=== PATIENT | female | born 1940 | race Caucasian/White ===

== ENCOUNTER 2017-08-31 15:11 | Inpatient (IN) | payer MEDICARE ==
[2017-08-31 15:43] VITALS: BMI 34.2
[2017-08-31 16:31] LABS: #Basophils 0.1 thou/uL (0.0-0.2); #Eosinphils 0.2 thou/uL (0.0-0.7); #Lymphocytes 2.2 thou/uL (1.20-3.40); #Neutrophils 7.2 thou/uL (1.40-6.50); %Basophils 0.6 % (0.0-1.0); %Eosinophils 1.6 % (0.0-10.0); %Monocytes 8.9 % (0.0-10.0); Hematocrit 44.6 % (36.0-47.0); Mean Platelet Volume 7.2 fL (7.4-10.4); Red Blood Cell (RBC) Count 5.12 mill/uL (4.20-5.40); White Blood Cell (WBC) Count 10.6 thou/uL (4.8-10.8)
[2017-08-31] MEDS ORDERED: Acetaminophen 325 MG TAB PO PRN (16:41)
[2017-08-31 16:53] LABS: ALT (SGPT) 24 U/L (8-55); AST (SGOT) 26 U/L (5-34); Alkaline Phosphatase 90 U/L (40-150); Anion Gap 14 mmol/L (10-20); BUN (Urea Nitrogen) 20 mg/dL (9.8-20.1); Bilirubin, Total 0.8 mg/dL (0.2-1.2); Calc. Creatinine Clearance 80 mL/min (70-130); Calcium 10.2 mg/dL (7.8-10.44); Carbon Dioxide 30 mmol/L (23-31); Chloride 100 mmol/L (98-107); Estimated GFR-MDRD 69; Globulin 3.3 g/dL (2.4-3.5); Protein, Total 7.3 g/dL (6.0-8.3)
[2017-08-31] MEDS: cefTRIAXone\\ROCEPHIN 1 GM in Sodium Chloride 0.9% 100 ML IVPB SCH (17:08)
[2017-08-31] MEDS: Azithromycin 500 MG in Sodium Chloride 0.9% 250 ML 250 ML IVPB SCH (17:47)
--- NOTE | 2017-08-31 17:49 | RAD ---
CHEST TWO VIEWS: 08/31/17 HISTORY: Pneumonia. COMPARISON: 11/05/08. FINDINGS: The cardiac silhouette and pulmonary vasculature are unremarkable. Mild bibasilar atelectasis is tariq arent with more focal infiltrate-like opacity at the left posterior lung base. Minimal bilateral ple ural fluid may be present. No lobar consolidation or pneumothorax are apparent. IMPRESSION: Subtle left basilar parenchymal opacity may present focal pneumonitis or chronic scarring. Clinical correlation regarding other signs and symptoms of left basilar pneumonitis is required. Please consi juliet continued radiographic followup to evaluate for clearing versus further progression. POS: [facility]
[2017-08-31] MEDS: Albuterol Sulfate 2.5 mg/3 ml Neb NEB SCH (19:08)
[2017-08-31 19:26] LABS: Bilirubin Negative (Negative); Blood, Urine Large (Negative); Glucose, Urine (Dipstick) Negative (Negative); Ketone, Urine Negative (Negative); Nitrite Negative (Negative); Protein, Urine (Dipstick) 30 mg/dL (Neg-Trace)
[2017-08-31 19:28] LABS: Bacteria/HPF None Seen HPF (None Seen); Hyaline Casts/LPF 0-3 HYALINE CAST LPF (0-3 Hyaline); Squamous Epithelial 0-3 HPF (0-3); WBC/HPF 0-3 HPF (0-3)
[2017-08-31] MEDS: Pravastatin Sodium 40 MG TAB PO SCH ×2 (20:14→21:18)
[2017-08-31] MEDS: Aspirin 325 MG TAB PO SCH ×3 (20:14→21:21)
[2017-08-31] MEDS ORDERED: Ondansetron HCl/PF 4 MG/2 ML Vial SLOW IVP PRN (20:40)
[2017-08-31] MEDS ORDERED: Mag-Al 1200 mg/1200 mg/30 ML UDCUP PO PRN (20:40)
[2017-08-31] MEDS: Pantoprazole 40 MG VIAL IVP SCH (21:07)
[2017-08-31] MEDS: Zolpidem Tartrate 5 MG TAB PO PRN (21:18)
--- NOTE | 2017-09-01 05:58 | HP-2 ---
DATE OF ADMISSION: 08/31/2017 ADMITTING PHYSICIAN: Bakari Alcaraz M.D. HISTORY OF PRESENT ILLNESS: The patient is a 76-year-old female. For 3 days, she has been having p roductive coughs, low-grade fever, some mild chest discomfort. She was seen and evaluated in off ice on Tuesday, was diagnosed as having mild pneumonia based on patchy infiltrates of her chest x-ray , both right and left lower lobe. She was placed on p.o. Levaquin as well as intramuscular Rocephin . She was seen today in followup. She states she was really not feeling much better. She is havin g some problems with vomiting. She feels somewhat more short of breath, even though her O2 sats wer e 93% on room air. She still noticed some productive coughing, but no bloody sputum is otherwise no jeff. She has now been admitted for further evaluation and treatment. As noted, she has been having symptoms now for approximately 3-5 days. This began after an episode of vomiting approximately 3-4 days ago. She did not note any choking or gagging associated with thi s. Otherwise, no other medical complaints. ALLERGIES: She has no known allergies. CURRENT MEDICATIONS: Metoprolol 25 mg daily, lisinopril 5 mg daily, pravastatin 40 mg daily, aspiri n 325 b.i.d. PAST MEDICAL HISTORY: Significant for history of atrial fibrillation, status post ablation. PAST SURGICAL HISTORY: Positive for bilateral knee replacement. SOCIAL AND PERSONAL HISTORY: She is . She does not smoke, drinks alcohol infrequently. FAMILY HISTORY: Otherwise, noncontributory. REVIEW OF SYSTEMS: Gastrointestinal: Negative. Genitourinary: Negative. Cardiovascular: Negati ve. Neurologic: Negative. Musculoskeletal: Otherwise, negative. PHYSICAL EXAMINATION: VITAL SIGNS: Temperature 98.3, pulse 60, respirations 18, O2 sats 93% on room air, BP 156/79. GENERAL: She is alert and active, in no acute distress. HEENT: Normocephalic, atraumatic. Extraocular muscles are intact. Sclerae and conjunctivae are cl ear. Throat clear. NECK: Supple, full range of motion, no masses. LUNGS: Reveal scattered rales, fairly mild to the right and left base without wheezes or rhonchi ap preciated. ABDOMEN: Soft, nontender. The bowel sounds are active. No hepatosplenomegaly is noted. EXTREMITIES: No clubbing, edema, or cyanosis. LABORATORY: Hemoglobin is 14.8, hematocrit 44.6. White blood count is 10.6, sodium 140, potassium 4.0, chloride 100, CO2 30, BUN 20, creatinine 0.81. IMPRESSION: This is a 76-year-old female who has a previous diagnosis of pneumonia, failing outpati ent therapy. PLAN: 1. She will be placed on IV Rocephin and Zithromax. 2. IV steroids will be given. 3. Albuterol nebulizations. 4. Further recommendations and treatment, we will see how she initially responds to therapy.
[2017-09-01] MEDS: Albuterol Sulfate 2.5 mg/3 ml Neb NEB SCH ×3 (06:14→18:32)
--- NOTE | 2017-09-01 08:09 | PRG ---
DATE OF SERVICE: 09/01/2017 Record is feeling better, less coughing, less shortness of breath, less stress discomfort. PHYSICAL EXAMINATION: VITAL SIGNS: Temperature 98.1, pulse 57, respirations 20, O2 sat 98%. LUNGS: With decreased rales at the left and right base. No wheezes are noted. HEART: Reveals no murmur. IMPRESSION: Left lower lobe and right lower lobe pneumonia, improving. PLAN: Continue current treatment.
[2017-09-01] MEDS: Aspirin 325 MG TAB PO SCH ×2 (08:34→20:47)
[2017-09-01] MEDS: Lisinopril 5 MG TAB PO SCH (08:37)
[2017-09-01] MEDS: cefTRIAXone\\ROCEPHIN 1 GM in Sodium Chloride 0.9% 100 ML IVPB SCH (16:04)
[2017-09-01] MEDS: Azithromycin 500 MG in Sodium Chloride 0.9% 250 ML 250 ML IVPB SCH (17:32)
[2017-09-01] MEDS: Pravastatin Sodium 40 MG TAB PO SCH (20:47)
[2017-09-01] MEDS: Pantoprazole 40 MG VIAL IVP SCH (20:47)
[2017-09-01] MEDS: Zolpidem Tartrate 5 MG TAB PO PRN (20:47)
[2017-09-02] MEDS: Albuterol Sulfate 2.5 mg/3 ml Neb NEB SCH (06:39)
[2017-09-02 07:59] VITALS: BP 146/80
[2017-09-02 08:04] VITALS: TEMP 98
[2017-09-02] MEDS: Lisinopril 5 MG TAB PO SCH (09:24)
[2017-09-02] MEDS: Aspirin 325 MG TAB PO SCH (09:25)
--- NOTE | 2017-09-03 08:26 | DIS ---
DATE OF ADMISSION: 08/31/2017 DATE OF DISCHARGE: 09/02/2017 ADMITTING DIAGNOSIS: Bibasilar lobar pneumonia. CHIEF COMPLAINT: Shortness of breath. HISTORY OF PRESENT ILLNESS: Patient had a low-grade fever on an outpatient basis, started on Levaquin and a shot of Rocephin in the clinic, did not improve , worsening sputum production, oxygen saturations dropped in the low 90%, was directly admitted for IV medications, continued on Rocephin and azithromycin. HOSPITAL COURSE: The patient did well with IV antibiotics, steroids, and breathing treatments. At the time of discharge, oxygen saturations were stable above 90s, still making productive sputum, especially after breathing treatments. Patient reported good social support structure everybody, and son in town. Lungs were clear at the time of discharge post-breathing treatment. STUDIES: X-ray on 08/31/2017, left basal parenchymal opacity, additional signs suggestive of pneumonitis. DISCHARGE DIET: Regular. DISCHARGE ACTIVITY: As tolerated. FOLLOWUP: With Dr. Bakari Alcaraz in 3-5 days. DISCHARGE MEDICATIONS: Include Tylenol 650 mg p.r.n. pain, albuterol ProAir 2 puffs inhaled q. 4 hours p.r.n. wheeze and cough, Augmentin 875 mg/125 mg 1 tab p.o. b.i.d. x7 days, aspirin 325 mg 1 tab p.o. b.i.d., azithromycin 250 mg 1 tab p.o. q. day x3 days, lisinopril 5 mg 1 tab p.o. q. day, metoprolol 25 mg 1 tab p.o. q. day extended release, Protonix 40 mg 1 tab p.o. q. day, pravastatin 40 mg 1 tab p.o. at bedtime, prednisone 20 mg 1 tab p.o. q.a.m. x5 days, Cheratussin AC 15 mL p.o. q. 6 hours p.r.n. cough. DISCHARGE DIAGNOSES: Hypertension, basilar pneumonia, possible aspiration pneumonitis, improved; history of atrial fibrillation, continuing on twice daily aspirin therapy, status post ablation, continuing metoprolol. MTDD
== END 2017-09-02 10:29 | disposition home or self-care (01) | DRG 179 ==
LOC: T4-B 15:11
PROVIDERS: ADMIT Family Medicine; ATTEND Family Medicine
DX: J69.0 Pneumonitis due to inhalation of food and vomit (principal); I48.91 Unspecified atrial fibrillation; R11.10 Vomiting, unspecified; I10 Essential (primary) hypertension; Z79.82 Long term (current) use of aspirin
CPT/HCPCS: 36415; 71020; 80053; 81003; 81015; 85025; 94640; A4216; C9113; J0456; J0696; J2405; J2920; J7050; J7611

== ENCOUNTER 2017-11-14 14:30 | Emergency (ER) | payer MEDICARE ==
--- NOTE | 2017-11-14 15:50 | RAD ---
CHEST TWO VIEWS HISTORY: Cough. COMPARISON: 08/31/2017 FINDINGS: Cardiac silhouette and pulmonary vasculature are unremarkable. Lungs remain hyperinflated. Linear s carring at the left lung base is stable. There is no lobar consolidation, pneumothorax, or pleural f luid evident. IMPRESSION: Chronic-type findings are stable. No active cardiopulmonary abnormalities are demonstrated. POS: [facility]
[2017-11-14] MEDS ORDERED: predniSONE 20 MG TAB ONE (19:19)
== END 2017-11-14 19:15 | disposition home or self-care (01) ==
LOC: ERS 14:30
DX: J20.9 Acute bronchitis, unspecified (principal); I25.10 Atherosclerotic heart disease of native coronary artery without angina pectoris; I48.91 Unspecified atrial fibrillation; E78.5 Hyperlipidemia, unspecified; I10 Essential (primary) hypertension
CPT/HCPCS: 71020; 94640; J7506; J7620

== ENCOUNTER → 2019-09-16 | Emergency (ER) | payer MEDICARE ==
[~2019-09-16] MED LIST: Acetaminophen 500 MG TAB ONE; Ondansetron PF 4 MG/2 ML Vial ONE; cefTRIAXone\\ROCEPHIN 1 GM VIAL ONE
--- NOTE | 2019-09-16 17:50 | RAD ---
EXAM: Single view of the chest HISTORY: Cough COMPARISON: 11/05/2008 FINDINGS: Single view of the chest shows a normal sized cardiomediastinal silhouette. There is no jacqueline dence of consolidation, mass, or pleural effusion. The bones are unremarkable. IMPRESSION: No evidence of acute cardiopulmonary disease
[2019-09-16 18:10] LABS: #Eosinphils 0.1 thou/uL (0.0-0.7); #Lymphocytes 1.8 thou/uL (1.20-3.40); #Monocytes 0.9 thou/uL (0.11-0.59); #Neutrophils 11.9 thou/uL (1.40-6.50); %Basophils 0.1 % (0.0-1.0); %Eosinophils 0.6 % (0.0-10.0); %Lymphocytes 11.9 % (21.0-51.0); %Neutrophils 81.5 % (42.0-75.0); Hemoglobin 15.7 g/dL (12.0-16.0); Mean Corpuscular HGB CONC 34.4 g/dL (32.0-36.0); Mean Corpuscular Volume 84.4 fL (78.0-98.0); Mean Platelet Volume 7.7 fL (7.4-10.4); Platelet Count 186 thou/uL (130-400); RBC Distribution Width 12.4 % (11.5-14.5); Red Blood Cell (RBC) Count 5.39 mill/uL (4.20-5.40); White Blood Cell (WBC) Count 14.6 thou/uL (4.8-10.8)
[2019-09-16 18:30] LABS: ALT (SGPT) 14 U/L (8-55); AST (SGOT) 15 U/L (5-34); Albumin 4.4 g/dL (3.4-4.8); Alkaline Phosphatase 98 U/L (40-110); Anion Gap 16 mmol/L (10-20); BUN (Urea Nitrogen) 13 mg/dL (9.8-20.1); Bilirubin, Total 1.4 mg/dL (0.2-1.2); Calc. Creatinine Clearance 0 mL/min (70-130); Calcium 10.1 mg/dL (7.8-10.44); Carbon Dioxide 25 mmol/L (23-31); Chloride 100 mmol/L (98-107); Estimated GFR-MDRD 60; Globulin 2.7 g/dL (2.4-3.5); Glucose 116 mg/dL (83-110); Potassium 3.8 mmol/L (3.5-5.1); Protein, Total 7.1 g/dL (6.0-8.3); Sodium 137 mmol/L (136-145)
[2019-09-16 20:57] LABS: Bilirubin Negative (Negative); Blood, Urine 2+ (Negative); Clarity Clear (Clear); Glucose, Urine (Dipstick) Normal (Negative); Leukocyte 250 Leu/uL (Negative); Mucous/LPF 1+ LPF (<2+); Nitrite Negative (Negative); Protein, Urine (Dipstick) 50 mg/dL (Neg-Trace); RBC/HPF 21-50 HPF (0-3); Urobilinogen Normal mg/dL (Less than 2); WBC/HPF 21-50 HPF (0-3)
[2019-09-16 20:59] LABS: Bacteria/HPF 1+ HPF (None Seen)
== END ==
LOC: ERS 17:06
DX: J18.9 Pneumonia, unspecified organism (principal); J44.9 Chronic obstructive pulmonary disease, unspecified; I25.10 Atherosclerotic heart disease of native coronary artery without angina pectoris; I49.9 Cardiac arrhythmia, unspecified; I48.91 Unspecified atrial fibrillation; E78.5 Hyperlipidemia, unspecified; I10 Essential (primary) hypertension; F32.9 Major depressive disorder, single episode, unspecified; Z79.82 Long term (current) use of aspirin; Z79.899 Other long term (current) drug therapy
CPT/HCPCS: 36415; 71045; 80053; 81003; 81015; 83605; 84484; 85025; 87040; 87804; 93005; 96361; 96365; 96375; J0696; J2405

== ENCOUNTER 2020-08-14 13:08 | Observation (INO) | payer MEDICARE, OTHER ==
[2020-08-14 14:04] LABS: #Eosinphils 0.3 thou/uL (0.0-0.7); #Lymphocytes 3.1 thou/uL (1.20-3.40); #Monocytes 0.8 thou/uL (0.11-0.59); #Neutrophils 6.7 thou/uL (1.40-6.50); %Basophils 0.4 % (0.0-1.0); %Eosinophils 2.8 % (0.0-10.0); %Lymphocytes 28.8 % (21.0-51.0); %Monocytes 6.9 % (0.0-10.0); %Neutrophils 61.2 % (42.0-75.0); Hemoglobin 15.9 g/dL (12.0-16.0); Mean Corpuscular Hemoglobin 28.6 pg (27.0-31.0); Mean Corpuscular Volume 86.6 fL (78.0-98.0); Mean Platelet Volume 8.1 fL (7.4-10.4); Platelet Count 220 thou/uL (130-400); RBC Distribution Width 12.6 % (11.5-14.5); Red Blood Cell (RBC) Count 5.57 mill/uL (4.20-5.40); White Blood Cell (WBC) Count 10.9 thou/uL (4.8-10.8)
[2020-08-14 14:25] LABS: ALT (SGPT) 20 U/L (8-55); AST (SGOT) 21 U/L (5-34); Albumin 4.5 g/dL (3.4-4.8); Alkaline Phosphatase 108 U/L (40-110); Anion Gap 14 mmol/L (10-20); BUN (Urea Nitrogen) 18 mg/dL (9.8-20.1); Bilirubin, Total 0.9 mg/dL (0.2-1.2); Calc. Creatinine Clearance 0 mL/min (70-130); Calcium 9.5 mg/dL (7.8-10.44); Carbon Dioxide 26 mmol/L (23-31); Chloride 105 mmol/L (98-107); Estimated GFR-MDRD 52; Globulin 2.9 g/dL (2.4-3.5); Glucose 119 mg/dL (83-110); Potassium 3.7 mmol/L (3.5-5.1); Protein, Total 7.4 g/dL (6.0-8.3); Sodium 141 mmol/L (136-145)
--- NOTE | 2020-08-14 16:35 | PDOC.HHP ---
Hospitalist HPI - History of Present Illness Heart Palpitations History of Present Illness: PCP: Dr. Bakari Alcaraz The patient is an 79-year-old female with a past medical history significant for atrial fibrillation ( ablation greater than 10 years ago), hypertension and hyperlipidemia that presents to the emergency department for the above complaint. The patient reports feeling heart palpitations for the past several weeks. She reports that they last seconds. She has associated feeling of anxiety. Today while eating lunch at home, she reports developing heart palpitations again. She reports this time it lasted a couple of hours. She denies any chest pain, lower extremity swelling, lightheadedness or shortness of breath. She had no other symptomatology. She came to the ER for further sania luation. 8 ED Course: VITAL SIGNS [facility] Aug 14, 2020 13:10 RICHARD Owens Lauren BP: 178/114, Pulse: 150, Resp: 18, Temp: 98.5 (Oral), Pain: 0, O2 sat: 93 on (Room Air), Time: 08/14/2020 13:10. VITAL SIGNS [facility] Aug 14, 2020 13:46 RICHARD Vines Laine BP: 125/100, Pulse: 107, Resp: 20, O2 sat: 94 on (Room Air), Time: 08/14/2020 13:46. VITAL SIGNS [facility] Aug 14, 2020 13:49 RICHARD Vines Laine BP: 125/100, Pulse: 96, Resp: 20, O2 sat: 94 on (2L Oxygen), Time: 08/14/2020 13:49. VITAL SIGNS [facility] Aug 14, 2020 14:00 RICHARD Vines Laine BP: 132/70, Pulse: 90, Resp: 20, O2 sat: 95 on (2L Oxygen), Time: 08/14/2020 14:00. VITAL SIGNS [facility] Aug 14, 2020 14:10 RICHARD Vines Laine BP: 127/70, Pulse: 91, Resp: 20, O2 sat: 95 on (2L Oxygen), Time: 08/14/2020 14:10. VITAL SIGNS [facility] Aug 14, 2020 14:23 RICHARD Vines Laine BP: 132/88, Pulse: 88, Resp: 20, O2 sat: 95 on (2L Oxygen), Time: 08/14/2020 14:23. VITAL SIGNS [facility] Aug 14, 2020 14:30 RICHARD Vines Laine BP: 126/71, Pulse: 84, Resp: 20, O2 sat: 95 on (2L Oxygen), Time: 08/14/2020 14:30. VITAL SIGNS [facility] Aug 14, 2020 14:40 RICHARD Vines Laine BP: 127/59, Pulse: 82, Resp: 20, O2 sat: 95 on (2L Oxygen), Time: 08/14/2020 14:40. VITAL SIGNS [facility] Aug 14, 2020 14:45 RICHARD Vines Laine BP: 136/65, Pulse: 76, Resp: 20, O2 sat: 95 on (2L Oxygen), Time: 08/14/2020 14:45. VITAL SIGNS [facility] Aug 14, 2020 15:48 RICHARD Vines Laine BP: 133/65, Pulse: 74, Resp: 22, O2 sat: 95 on (2L Oxygen), Time: 08/14/2020 15:48. Medication administration: dilTIAZem intravenous 5 mg/hr IV Piggy Back Given 13:48 08/14/2020 dilTIAZem intravenous 25 mg IV Push Given 13:45 08/14/2020 Hospitalist ROS - Review of Systems Constitutional: denies: fever, chills Respiratory: denies: cough, shortness of breath, wheezing Cardiovascular: reports: palpitations. denies: chest pain, edema, light headedness Gastrointestinal: denies: nausea, vomiting, abdominal pain, diarrhea Genitourinary: denies: dysuria, hematuria All other systems reviewed; all pertinent +/- noted in HPI/Subj - Medication Medications: metoprolol succinate [facility] Aug 14, 2020 14:30 RICHARD Vines Laine tablet extended release 24 hr : Strength - 25 mg : ORAL Patient Dose: 25 mg Oral once a day. lisinopril [facility] Aug 14, 2020 14:31 RICHARD Vines Laine tablet : Strength - 5 mg : ORAL Patient Dose: 5 mg Oral once a day. atorvastatin [facility] Aug 14, 2020 14:31 RICHARD Vines Laine tablet : Strength - 10 mg : ORAL Patient Dose: 10 mg Oral. Allergies: NKDA Hospitalist History - Past Medical History Source: patient, RN notes reviewed Cardiac: reports: AFIB, CAD, HTN, Hyperlipidemia Psych: reports: Depression Other Medical History: MEDICAL HISTORY Past medical history includes cardiac history, coronary artery disease, arrhythmia, atrial fibrillation, Past medical history includes history of hyperlipidemia, Past medical history includes history of hypertension, which has been treated. VERIFIED 08/14/2020. FEMALE SURGICAL HISTORY CARDIAC ABLATION, Surgical history of appendectomy, Surgical history of orthopedic surgery, BILAT KNEE. VERIFIED 08/14/2020. PSYCHIATRIC HISTORY Psychiatric history includes, depression. VERIFIED 08/14/2020. SOCIAL HISTORY Patient drinks socially, rarely, Patient denies drug use, Patient has no smoking history. FAMILY HISTORY - Past Surgical History Past Surgical History: reports: Appendectomy, Other (cardiac ablation, B knee sx) - Social History Smoking Status: Former smoker (Quit greater than 20 years ago) Alcohol: reports: Rare Drugs: reports: none Living Situation: With Family Occupation: Retired. Activity level: independent ambulation - Exam General Appearance: NAD, awake alert Eye: anicteric sclera ENT: normocephalic atraumatic Neck: supple, symmetric, no JVD Heart: RRR, no murmur, no gallops, no rubs, normal peripheral pulses Respiratory: CTAB, no wheezes, no rales, no ronchi, normal chest expansion, no tachypnea Gastrointestinal: soft, non-tender, normal bowel sounds, no bruit, no guarding, no rigidity Extremities: no cyanosis, no edema Skin: no rashes Neurological: normal sensation to touch, no weakness, no focal deficits Musculoskeletal: normal tone, normal strength Psychiatric: normal affect, A&O x 3 Hospitalist Results - Labs Result Diagrams: 08/14/20 13:43 08/14/20 13:43 Lab results: WBC 10.9 thou/uL (4.8-10.8) H 08/14/20 13:43 Hgb 15.9 g/dL (12.0-16.0) 08/14/20 13:43 Hct 48.2 % (36.0-47.0) H 08/14/20 13:43 MCV 86.6 fL (78.0-98.0) 08/14/20 13:43 Plt Count 220 thou/uL (130-400) 08/14/20 13:43 Neutrophils % 61.2 % (42.0-75.0) 08/14/20 13:43 Sodium 141 mmol/L (136-145) 08/14/20 13:43 Potassium 3.7 mmol/L (3.5-5.1) 08/14/20 13:43 Chloride 105 mmol/L (98-107) 08/14/20 13:43 Carbon Dioxide 26 mmol/L (23-31) 08/14/20 13:43 BUN 18 mg/dL (9.8-20.1) 08/14/20 13:43 Creatinine 1.03 mg/dL (0.6-1.1) 08/14/20 13:43 Glucose 119 mg/dL (83-110) H 08/14/20 13:43 Calcium 9.5 mg/dL (7.8-10.44) 08/14/20 13:43 Total Bilirubin 0.9 mg/dL (0.2-1.2) 08/14/20 13:43 AST 21 U/L (5-34) 08/14/20 13:43 ALT 20 U/L (8-55) 08/14/20 13:43 Alkaline Phosphatase 108 U/L (40-110) 08/14/20 13:43 Troponin I 0.015 ng/mL (< 0.028) 08/14/20 13:43 B-Natriuretic Peptide 16.1 pg/mL (0-100) 08/14/20 13:43 Serum Total Protein 7.4 g/dL (6.0-8.3) 08/14/20 13:43 Albumin 4.5 g/dL (3.4-4.8) 08/14/20 13:43 - EKG Interpretation EK LEAD EKG INTERPRETATION [facility] Aug 14, 2020 14:04 MD Gutierrez Aaron 12 lead EKG interpreted by Emergency Department Physician at time of study, #1 Heart rate of 150 narrow complex with a QRS duration of 80 ms. No P waves visible supraventricular tachycardia. Nonspecific T wave changes in the lateral leads concerning for lateral ischemia. 12 LEAD EKG INTERPRETATION [facility] Aug 14, 2020 14:07 MD Gutierrez Aaron 12 lead EKG interpreted by Emergency Department Physician at time of study, Rate of 103. Sinus tachycardia. Normal axis normal intervals normal ST segments normal T waves. Impression sinus tachycardia. Hospitalist H&P A/P - Problem (1) SVT (supraventricular tachycardia) Code(s): I47.1 - SUPRAVENTRICULAR TACHYCARDIA Status: Acute (2) Heart palpitations Code(s): R00.2 - PALPITATIONS Status: Acute (3) History of atrial fibrillation Code(s): Z86.79 - PERSONAL HISTORY OF OTHER DISEASES OF THE CIRCULATORY SYSTEM Status: Chronic (4) Hypertension Code(s): I10 - ESSENTIAL (PRIMARY) HYPERTENSION Status: Chronic (5) Hyperlipidemia Code(s): E78.5 - HYPERLIPIDEMIA, UNSPECIFIED Status: Chronic - Plan Plan: 79/F with PMH atrial fibrillation (ablation> 10yrs), hypertension, hyperlipidemia presents for her palpitations. Admit to telemetry floor, observation status. Expected length of stay less than 2 midnights. #SVT Presented hypertensive, tachycardic, normal respirations, afebrile. Troponin 0.015, BNP 16.1 EKG narrow complex QRS, heart rate 150, no P waves. Given Cardizem 25 mg IVP with successful cardioversion. Started on Cardizem IVPB at 5 mg/hr. Consult cardiology. Order echocardiogram. Check TSH, mag level, UA. Give aspirin. #Heart palpitations Likely related to problem 1. #History of atrial fibrillation Reported ablation greater than 10 years ago. Not on any anticoagulation. #Hypertension Patient presented hypertensive. Restart home dose of metoprolol. Monitor blood pressure. #Hyperlipidemia Restart home dose of atorvastatin. SCDs for DVT prophylaxis. No GI prophylaxis. Full code. Medical decision maker is her spouse Ray at [phone]. Discussed case with Dr. Shore.
[2020-08-14] MEDS ORDERED: Ondansetron PF 4 MG/2 ML Vial IVP PRN (17:39)
[2020-08-14] MEDS ORDERED: Acetaminophen 325 MG TAB PO PRN (17:39)
[2020-08-14] MEDS ORDERED: Ondansetron ODT 4 MG TAB PO PRN (17:39)
[2020-08-14] MEDS ORDERED: Aspirin 325 mg Enteric Coated Tablet PO SCH (17:45)
[2020-08-14 18:12] VITALS: BMI 37.4
[2020-08-14] MEDS ORDERED: Diltiazem 125 MG in Sodium Chloride 0.9% 100 ML IVPB SCH (19:00)
[2020-08-14 19:43] LABS: Bilirubin Negative (Negative); Blood, Urine Trace (Negative); Clarity Clear (Clear); Glucose, Urine (Dipstick) Normal (Negative); Ketone, Urine Negative (Negative); Leukocyte 25 Leu/uL (Negative); Nitrite Negative (Negative); Protein, Urine (Dipstick) Negative (Neg-Trace); Specific Gravity, Urine 1.006 (1.002-1.036); Squamous Epithelial 0-3 HPF (0-3); Urobilinogen Normal mg/dL (Less than 2); pH, Urine 6.5 (5.0-9.0)
[2020-08-14 19:44] LABS: Bacteria/HPF 1+ HPF (None Seen)
[2020-08-14 20:46] LABS: Troponin I 0.024 ng/mL (< 0.028)
[2020-08-14 22:49] LABS: Troponin I 0.016 ng/mL (< 0.028)
[2020-08-14] MEDS ORDERED: diphenhydrAMINE 25 MG CAP PO SCH (23:30)
[2020-08-15 05:08] LABS: #Basophils 0.1 thou/uL (0.0-0.2); #Eosinphils 0.4 thou/uL (0.0-0.7); #Lymphocytes 2.8 thou/uL (1.20-3.40); #Monocytes 0.5 thou/uL (0.11-0.59); #Neutrophils 4.4 thou/uL (1.40-6.50); %Basophils 0.8 % (0.0-1.0); %Eosinophils 4.4 % (0.0-10.0); %Lymphocytes 34.7 % (21.0-51.0); %Monocytes 6.6 % (0.0-10.0); %Neutrophils 53.5 % (42.0-75.0); Hemoglobin 13.7 g/dL (12.0-16.0); Mean Corpuscular HGB CONC 32.7 g/dL (32.0-36.0); Mean Corpuscular Hemoglobin 28.3 pg (27.0-31.0); Mean Corpuscular Volume 86.8 fL (78.0-98.0); Mean Platelet Volume 7.8 fL (7.4-10.4); Platelet Count 182 thou/uL (130-400); RBC Distribution Width 12.5 % (11.5-14.5); Red Blood Cell (RBC) Count 4.84 mill/uL (4.20-5.40); White Blood Cell (WBC) Count 8.2 thou/uL (4.8-10.8)
[2020-08-15 05:52] LABS: Anion Gap 14 mmol/L (10-20); BUN (Urea Nitrogen) 20 mg/dL (9.8-20.1); Calc. Creatinine Clearance 81 mL/min (70-130); Calcium 8.8 mg/dL (7.8-10.44); Carbon Dioxide 26 mmol/L (23-31); Chloride 106 mmol/L (98-107); Estimated GFR-MDRD 63; Glucose 105 mg/dL (83-110); Potassium 3.7 mmol/L (3.5-5.1); Sodium 142 mmol/L (136-145)
[2020-08-15] MEDS ORDERED: Aspirin 81 mg Enteric Coated Tablet PO SCH (09:00)
[2020-08-15] MEDS ORDERED: Lisinopril 5 MG TAB PO SCH (09:00)
--- NOTE | 2020-08-15 10:51 | CON ---
DATE OF CONSULTATION: HISTORY OF PRESENT ILLNESS: Lindsay Pickering is an 79-year-old white female, who in June 2008, underwent right knee replacement. She had developed tachycardia which was labeled as sinus tachycardia and was placed on atenolol after surgery. She then stopped taking atenolol after that. In September 2008, she had sudden onset of palpitations. She came into the emergency room and was found to be in atrial flutter. She was started on intravenous Cardizem and converted to sinus rhythm. She then underwent radiofrequency ablation of her atrial flutter by Dr. Rojas in [place]. She has not had any further palpitations after that ablation until two weeks ago. She began to notice episodes of rapid heartbeat; however, this would only last for 1 or 2 seconds. Then yesterday, she had an episode that lasted for hours and came to the emergency room and was in supraventricular tachycardia. She was given intravenous Cardizem and has since converted to sinus rhythm. With her tachycardia, she only feels palpitations. She denied any chest discomfort or shortness of breath with that. PAST MEDICAL HISTORY: History of atrial flutter, hypercholesterolemia, and hypertension. PAST SURGICAL HISTORY: Appendectomy, right total knee replacement, left total knee replacement, radiofrequency ablation of atrial flutter. MEDICATIONS: Aspirin 325 daily, atorvastatin 10 mg daily, lisinopril 5 mg daily, metoprolol ER 25 mg daily. ALLERGIES: NONE. SOCIAL HISTORY: She occasionally drinks. She does not smoke. REVIEW OF SYSTEMS: A 10-point review of systems is otherwise unremarkable. PHYSICAL EXAMINATION: VITAL SIGNS: Blood pressure 140/62, pulse of 69. HEENT: PERRL. NECK: Supple. CHEST: Clear. CARDIAC: S1 and S2 normal without any S3, S4, or murmurs. Carotid upstrokes normal without bruits. ABDOMEN: Normal bowel sounds without tenderness or organomegaly. EXTREMITIES: Reveal no clubbing, cyanosis, or edema. NEUROLOGIC: Grossly intact. SKIN: Warm and dry. LABORATORY DATA: EKG on presentation revealed supraventricular tachycardia with rate of 149 per minute. No flutter waves are seen. After she converted, EKG revealed sinus tachycardia with rate of 103 per minute. CBC is unremarkable. Sodium 142, potassium 3.7, chloride 106, carbon dioxide 26, BUN 20, creatinine 0.87. Cardiac enzymes are unremarkable. TSH is normal. BNP 16.1. IMPRESSION: 1. 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 2. History of radiofrequency ablation for atrial flutter. 3. Hypertension. 4. Hypercholesterolemia. PLAN: Echocardiogram will be performed to reassess left ventricular function. Electrophysiology will be consulted for possible ablation of her supraventricular tachycardia. Job ID: [id number] MTDD
[2020-08-15 12:47] LABS: SARS-CoV-2 MS2 Positive; SARS-CoV-2 N Gene Negative; SARS-CoV-2 S Gene Negative; SARS-CoV-2 by NAA Not Detected (NotDetected); SARS-CoV-2 orf1ab Negative
--- NOTE | 2020-08-15 14:00 | PDOC.HOSPP ---
- Subjective Encounter Date: 08/15/20 Subjective: Feels completely normal. - Objective Vital Signs & Weight: Vital Signs (12 hours) Temp Pulse Resp BP BP Pulse Ox 08/15/20 12:00 97.6 F 62 16 176/74 H 94 L 08/15/20 07:41 98.3 F 69 16 140/62 94 L 08/15/20 04:45 63 18 130/58 L 63 L 08/15/20 03:35 98.4 F 68 18 139/68 96 Weight Weight 218 lb I&O: 08/14/20 08/15/20 08/16/20 06:59 06:59 06:59 Intake Total 567.9 Balance 567.9 Result Diagrams: 08/15/20 04:35 08/15/20 04:35 Hospitalist ROS - Medication Medications: Active Medications Generic Name Dose Route Start Last Admin Trade Name Freq PRN Reason Stop Dose Admin Aspirin 81 mg 08/15/20 09:00 08/15/20 09:12 Aspirin 81 Mg Enteric Coated Tablet PO 81 mg DAILY LEE Administration Lisinopril 5 mg 08/15/20 09:00 08/15/20 09:12 Lisinopril 5 Mg Tab PO 5 mg DAILY LEE Administration Metoprolol Succinate 25 mg 08/15/20 09:00 08/15/20 09:12 Metoprolol Succinate Xl 25 Mg Tab PO 25 mg DAILY LEE Administration - Exam General Appearance: NAD, awake alert General - other findings: Obese Heart: RRR, no murmur, no gallops, no rubs, normal peripheral pulses Respiratory: CTAB, no wheezes, no rales, no ronchi, normal chest expansion, no tachypnea, normal percussion Gastrointestinal: soft, non-tender, non-distended, normal bowel sounds, no palpable masses, no hepatomegaly, no splenomegaly, no bruit Extremities: no cyanosis, no clubbing, no edema Skin: normal turgor Musculoskeletal: normal tone, normal strength, no muscle wasting Psychiatric: normal affect, normal behavior, A&O x 3 Hosp A/P (1) SVT (supraventricular tachycardia) Code(s): I47.1 - SUPRAVENTRICULAR TACHYCARDIA Status: Acute (2) History of atrial fibrillation Code(s): Z86.79 - PERSONAL HISTORY OF OTHER DISEASES OF THE CIRCULATORY SYSTEM Status: Chronic (3) Hyperlipidemia Code(s): E78.5 - HYPERLIPIDEMIA, UNSPECIFIED Status: Chronic (4) Hypertension Code(s): I10 - ESSENTIAL (PRIMARY) HYPERTENSION Status: Chronic - Plan 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 Resolved presently. EP consult pending. Still on a diltiazem drip. On p.o. beta-aida. Hypertension: Continue with SRI inhibitor. Hyperlipidemia: Continue with statin.
[2020-08-15 14:58] VITALS: TEMP 97.6
[2020-08-15 16:11] VITALS: BP 131/61
--- NOTE | 2020-08-15 21:15 | CON ---
DATE OF CONSULTATION: 08/15/2020 Referring: Matt Ortiz MD HISTORY OF PRESENT ILLNESS: I am seeing Ms. 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 Her problems are: 1. Supraventricular tachycardia. a. Newly found narrow complex SVT at 149 beats per minute with difficult to visualize P-waves on presentation, did respond to the IV diltiazem. 2. Recurrent atrial arrhythmias. a. History of atrial flutter prompting radiofrequency ablation in [place] by Dr. Rojas. 3. History of hypertension. 4. Hypercholesteremia. ALLERGIES: NONE NOTED. MEDICATIONS: At home included 1. Aspirin. 2. Lisinopril. 3. Metoprolol succinate. 4. Lipitor. SUBJECTIVE: Ms. Pickering has been experiencing recurrent palpitations for last couple of weeks. The episodes though relatively short lasting and self terminating. This time though she developed a more lasting episode over 2 hours, which lasted until she came to the ER and was given a IV Cardizem bolus. Since then, she maintained sinus rhythm. Currently, she is asymptomatic. She had rapid palpitations, chest tightness sensation at the time of the tachycardia, now that has resolved. She denies PND or orthopnea. No fever, chills, cough. No stroke-like symptoms. No bleeding issues. No neurological deficits. REVIEW OF SYSTEMS: Rest of 12-point system otherwise unremarkable. PAST MEDICAL HISTORY: As above. She had history of appendectomy, right total knee replacement, left total knee replacement and radiofrequency ablation of atrial flutter in the past. SOCIAL HISTORY: She denies smoking or EtOH abuse. She does drink on occasion. Denies drug use. FAMILY HISTORY: Noncontributory. OBJECTIVE: VITAL SIGNS: Blood pressure 176/74, heart rate 62, respirations 16, and temperature 97.6 degrees Fahrenheit. GENERAL: Alert and oriented woman, in no apparent distress. NECK: Supple. Jugular veins not distended. CHEST: Coarse without crackles. HEART: Sounds are regular to rate and rhythm. No murmur or gallop. ABDOMEN: Benign. Bowel sounds positive. EXTREMITIES: Lower extremity without edema, clubbing, or cyanosis. Pulses are adequate. NEUROLOGIC: The patient is nonfocal. MUSCULOSKELETAL: Without joint swelling or deformity. SKIN: Without rash. DATABASE: EKG is reviewed. Initial EKG on 08/14/2020 reveals a narrow complex tachycardia with ventricular rate of 149 beats per minute. PVCs are not clearly visible. Subsequent EKG reveals sinus rhythm at 103 beats per minute. No significant ST-T changes. Telemetry strips continue to reveal normal rhythm. LABORATORY DATA: The white cell count 8.2, hemoglobin 13.7, platelet count is 182. Sodium 142, potassium 3.7, BUN is 20, creatinine is 0.87. The troponin I is 0.024 and 0.016 consecutively. The chest x-ray from September 16, 2019, shows no cardiopulmonary disease. ASSESSMENT AND PLAN: Ms. Pickering is a pleasant 79-year-old woman with a prior history of hypertension, also history of atrial flutter, which required radiofrequency ablation in [place] in 2006. Since then, she has done well up until 2 weeks ago when she started developing recurrent rapid palpitations. She had a nonterminating, more sustained episode prompting her current ER visit. Her EKG is documenting a narrow complex tachycardia at 149 beats per minute. P-waves are very difficult to visualize. No clear flutter waves are noted either. We discussed a differential diagnosis list which could include atypical atrial flutter versus AV fredi reentrant tachycardia or atrial tachycardia are all cannot be ruled out based on these. She has responded well to IV diltiazem, currently maintaining sinus rhythm on diltiazem drip. My plan would be at this point: 1. I would add p.o. diltiazem to her regimen. I have discussed the option of radiofrequency ablation. She is considering it. We will make arrangements as an outpatient to be revaluated and consider for this procedure. 2. Risks, benefits discussed. For now, I would continue aspirin only and will not place her on oral anticoagulant unless more sustained and more definite atrial flutter is seen. 3. Echocardiogram is being performed. We will obtain results and another followup will be arranged in next 2 to 4 weeks. Job ID: [id number] [facility]
--- NOTE | 2020-08-16 11:37 | EKG ---
Test Reason : Blood Pressure : / mmHG Vent. Rate : 149 BPM Atrial Rate : 079 BPM P-R Int : 000 ms QRS Dur : 080 ms QT Int : 300 ms P-R-T Axes : 000 020 011 degrees QTc Int : 472 ms Supraventricular tachycardia vs atrial flutter Nonspecific ST abnormality Abnormal ECG #1 Confirmed by LEXA NORTH, NORMA Hardwick ([id number]), image editor DAHIANA MONK ([id number]) on 08/16/2020 11:36:37 AM Referred By: Confirmed By:NORMA LINDQUIST MD
== END 2020-08-15 17:13 | disposition home or self-care (01) ==
LOC: ERS 13:08 → 2SW 15:51
PROVIDERS: ADMIT Internal Medicine; ATTEND Internal Medicine
DX: I47.1 Supraventricular tachycardia (principal); I10 Essential (primary) hypertension; E78.00 Pure hypercholesterolemia, unspecified; I25.10 Atherosclerotic heart disease of native coronary artery without angina pectoris; F32.9 Major depressive disorder, single episode, unspecified; I48.20 Chronic atrial fibrillation, unspecified; Z87.891 Personal history of nicotine dependence; Z79.82 Long term (current) use of aspirin; Z79.899 Other long term (current) drug therapy; Z20.828 Contact with and (suspected) exposure to other viral communicable diseases
CPT/HCPCS: 80048; 81001; 83735; 83880; 84484 ×2; 85025; 92960; 93005; 93306; 94760; 96374; 97139; 99291; U0003; 36415; 80053; 84443; 87635; 96376; G0378; Q0163

== ENCOUNTER 2021-04-13 10:30 | Observation (INO) | payer MEDICARE ==
[2021-04-13 10:52] LABS: #Basophils 0.1 thou/uL (0.0-0.2); #Eosinphils 0.2 thou/uL (0.0-0.7); #Lymphocytes 2.7 thou/uL (1.20-3.40); #Monocytes 0.5 thou/uL (0.11-0.59); #Neutrophils 4.9 thou/uL (1.40-6.50); %Basophils 0.7 % (0.0-1.0); %Eosinophils 2.5 % (0.0-10.0); %Lymphocytes 32.5 % (21.0-51.0); %Monocytes 6.4 % (0.0-10.0); %Neutrophils 57.9 % (42.0-75.0); Hemoglobin 15.4 g/dL (12.0-16.0); Mean Corpuscular HGB CONC 33.4 g/dL (32.0-36.0); Mean Corpuscular Hemoglobin 28.3 pg (27.0-31.0); Mean Corpuscular Volume 84.8 fL (78.0-98.0); Mean Platelet Volume 7.8 fL (7.4-10.4); Platelet Count 194 thou/uL (130-400); RBC Distribution Width 12.8 % (11.5-14.5); Red Blood Cell (RBC) Count 5.45 mill/uL (4.20-5.40); White Blood Cell (WBC) Count 8.4 thou/uL (4.8-10.8)
[2021-04-13 11:06] LABS: INR-International Normal Ratio 0.9; PTT 28.2 sec (22.9-36.1); Prothrombin Time 12.4 sec (12.0-14.7)
[2021-04-13 11:13] LABS: ALT (SGPT) 18 U/L (8-55); AST (SGOT) 19 U/L (5-34); Albumin 4.4 g/dL (3.4-4.8); Alkaline Phosphatase 118 U/L (40-110); Anion Gap 15 mmol/L (10-20); BUN (Urea Nitrogen) 22 mg/dL (9.8-20.1); Bilirubin, Total 0.9 mg/dL (0.2-1.2); Calc. Creatinine Clearance 0 mL/min (70-130); Calcium 9.5 mg/dL (7.8-10.44); Carbon Dioxide 24 mmol/L (23-31); Chloride 106 mmol/L (98-107); Globulin 2.9 g/dL (2.4-3.5); Glucose 105 mg/dL (83-110); Potassium 4.3 mmol/L (3.5-5.1); Protein, Total 7.3 g/dL (5.8-8.1); Sodium 141 mmol/L (136-145)
[2021-04-13] MEDS ORDERED: hydrALAZINE 20 MG/ML VIAL SLOW IVP PRN (14:28)
[2021-04-13] MEDS ORDERED: Labetalol HCl 100 MG/20 ML VIAL SLOW IVP PRN (14:28)
[2021-04-13] MEDS ORDERED: Acetaminophen 325 MG TAB PO PRN (14:28)
[2021-04-13] MEDS ORDERED: Melatonin 3 MG TAB PO PRN (14:28)
[2021-04-13 15:31] VITALS: BMI 35.6
[2021-04-13 21:48] LABS: SARS-CoV-2 PCR by NAA Not Detected (NotDetected)
[2021-04-14 06:00] LABS: #Eosinphils 0.3 thou/uL (0.0-0.7); #Lymphocytes 2.5 thou/uL (1.20-3.40); #Monocytes 0.6 thou/uL (0.11-0.59); #Neutrophils 3.8 thou/uL (1.40-6.50); %Basophils 0.7 % (0.0-1.0); %Eosinophils 3.5 % (0.0-10.0); %Monocytes 8.6 % (0.0-10.0); %Neutrophils 52.2 % (42.0-75.0); Hemoglobin 13.3 g/dL (12.0-16.0); Mean Corpuscular HGB CONC 33.3 g/dL (32.0-36.0); Mean Corpuscular Hemoglobin 28.3 pg (27.0-31.0); Mean Corpuscular Volume 85.2 fL (78.0-98.0); Mean Platelet Volume 7.8 fL (7.4-10.4); Platelet Count 158 thou/uL (130-400); RBC Distribution Width 12.6 % (11.5-14.5); Red Blood Cell (RBC) Count 4.68 mill/uL (4.20-5.40); White Blood Cell (WBC) Count 7.2 thou/uL (4.8-10.8)
[2021-04-14 06:03] LABS: Hemoglobin A1c 4.9 % (4.0-6.0)
[2021-04-14 06:16] LABS: Anion Gap 13 mmol/L (10-20); BUN (Urea Nitrogen) 21 mg/dL (9.8-20.1); Calc. Creatinine Clearance 76 mL/min (70-130); Calcium 8.9 mg/dL (7.8-10.44); Carbon Dioxide 25 mmol/L (23-31); Cardiac Risk 3.9 (Less than 4.5); Chloride 108 mmol/L (98-107); Cholesterol 133 mg/dl (< 200 Desired); Glucose 101 mg/dL (83-110); HDL Cholesterol 34 mg/dL (>60 Neg Risk); LDL Cholesterol, Calculated 75 mg/dL; Potassium 3.8 mmol/L (3.5-5.1); Sodium 142 mmol/L (136-145); Triglycerides 119 mg/dL (Less than 150)
[2021-04-14] MEDS ORDERED: Aspirin 325 MG TAB PO SCH (09:00)
[2021-04-14] MEDS ORDERED: Aspirin 325 mg Enteric Coated Tablet PO SCH (09:00)
[2021-04-14 15:40] VITALS: BP 145/64; TEMP 97.5
[2021-04-14] MEDS ORDERED: Atorvastatin Calcium 10 MG TAB PO SCH (21:00)
[2021-04-15] MEDS ORDERED: Lisinopril 5 MG TAB PO SCH (09:00)
== END 2021-04-14 18:15 | disposition home or self-care (01) ==
LOC: ERS 10:30 → SUATTDRO 10:30 → 2SE 12:12
PROVIDERS: ADMIT Internal Medicine; ATTEND Hospitalist
DX: I63.81 Other cerebral infarction due to occlusion or stenosis of small artery (principal); R29.810 Facial weakness; G81.91 Hemiplegia, unspecified affecting right dominant side; I25.10 Atherosclerotic heart disease of native coronary artery without angina pectoris; E78.5 Hyperlipidemia, unspecified; I48.91 Unspecified atrial fibrillation; I10 Essential (primary) hypertension; I65.23 Occlusion and stenosis of bilateral carotid arteries; I35.2 Nonrheumatic aortic (valve) stenosis with insufficiency; I44.0 Atrioventricular block, first degree; Z79.82 Long term (current) use of aspirin; Z79.899 Other long term (current) drug therapy; Z20.822 Contact with and (suspected) exposure to COVID-19
CPT/HCPCS: 70450; 70551; 71045; 80048; 80053; 80061; 82962; 83036; 84484; 85025 ×2; 85610; 85730; 93005; 93306; 93880; 97139; 99285; G0378 ×3; U0003; U0005; 36415; 36416; 87635

== ENCOUNTER 2022-01-13 08:58 | Outpatient (CLI) | payer MEDICARE | END 2022-01-13 08:59 | disposition home or self-care (01) | LOC: BICMAMMO 08:58 | PROVIDERS: ATTEND Family Medicine | DX: Z12.31 Encounter for screening mammogram for malignant neoplasm of breast (principal); Z98.82 Breast implant status | CPT/HCPCS: 77063; 77067 ==

== ENCOUNTER 2023-01-06 12:35 | Outpatient (CLI) | payer MEDICARE | END 2023-01-06 12:36 | disposition home or self-care (01) | LOC: ULT 12:35 | PROVIDERS: ATTEND Internal Medicine Cardiovascular Disease | DX: I48.0 Paroxysmal atrial fibrillation (principal); I08.3 Combined rheumatic disorders of mitral, aortic and tricuspid valves | CPT/HCPCS: 93306 ==

== ENCOUNTER 2023-02-23 11:24 | Outpatient (CLI) | payer MEDICARE ==
[2023-02-23 13:54] LABS: #Basophils 0.1 10x3/uL (0.0-0.2); #Eosinphils 0.1 10x3/uL (0.0-0.5); #Monocytes 0.8 10x3/uL (0.0-1.1); #Neutrophils 6.1 10x3/uL (1.5-8.4); %Basophils 0.5 % (0.0-2.0); %Eosinophils 1.1 % (0.0-6.0); %Monocytes 7.8 % (0.0-10.0); %Neutrophils 61.2 % (40.0-75.0); Hemoglobin 14.5 g/dL (12.0-15.5); Mean Corpuscular HGB CONC 31.7 g/dL (32.0-36.0); Mean Corpuscular Hemoglobin 26.9 pg (27.0-33.0); Mean Corpuscular Volume 84.8 fl (81.6-98.3); Mean Platelet Volume 11.1 fl (7.4-10.4); Platelet Count 214 10x3/uL (150-450); Red Blood Cell (RBC) Count 5.39 10x6/uL (3.90-5.03); White Blood Cell (WBC) Count 9.9 10x3/uL (3.5-10.5)
[2023-02-23 14:01] LABS: Anion Gap 17 mmol/L (10-20); BUN (Urea Nitrogen) 23 mg/dL (9.8-20.1); Calc. Creatinine Clearance 0 mL/min (70-130); Calcium 9.7 mg/dL (7.8-10.44); Carbon Dioxide 26 mmol/L (23-31); Chloride 105 mmol/L (98-107); Estimated GFR 57; Glucose 77 mg/dL (83-110); Potassium 4.9 mmol/L (3.5-5.1); Sodium 143 mmol/L (136-145)
== END 2023-02-23 11:25 | disposition home or self-care (01) ==
LOC: LABBT 11:24
PROVIDERS: ATTEND Internal Medicine Cardiovascular Disease
DX: Z01.812 Encounter for preprocedural laboratory examination (principal); M50.221 Other cervical disc displacement at C4-C5 level
CPT/HCPCS: 80048; 85025

== ENCOUNTER 2023-02-28 06:23 | Day surgery (SDC) | payer MEDICARE ==
[2023-02-25 11:26] VITALS: BMI 38.0
[2023-02-28] MEDS ORDERED: Lidocaine 1% PF 5 ML VIAL ONE (08:42)
[2023-02-28] MEDS ORDERED: PROPOFOL 200 MG/20 ML VIAL ONE (08:42)
== END 2023-02-28 10:41 | disposition home or self-care (01) ==
LOC: SDC 06:23
PROVIDERS: ATTEND Internal Medicine Cardiovascular Disease
PROC: 5A2204Z Restoration of Cardiac Rhythm, Single (ICD-10-PCS; principal; 2023-02-28)
PROC: B24BZZ4 Ultrasonography of Heart with Aorta, Transesophageal (ICD-10-PCS; 2023-02-28)
DX: I48.0 Paroxysmal atrial fibrillation (principal); I08.3 Combined rheumatic disorders of mitral, aortic and tricuspid valves; I70.0 Atherosclerosis of aorta; I44.0 Atrioventricular block, first degree; I48.92 Unspecified atrial flutter; I47.1 Supraventricular tachycardia; I11.9 Hypertensive heart disease without heart failure; E78.00 Pure hypercholesterolemia, unspecified; K21.9 Gastro-esophageal reflux disease without esophagitis; Z86.73 Personal history of transient ischemic attack (TIA), and cerebral infarction without residual deficits; Z79.01 Long term (current) use of anticoagulants; Z79.82 Long term (current) use of aspirin; Z79.899 Other long term (current) drug therapy; Z87.891 Personal history of nicotine dependence
CPT/HCPCS: 92960; 93005; 93010; 93312; J2704

== ENCOUNTER 2023-03-04 10:50 | Inpatient (IN) | payer MEDICARE ==
[2023-03-04 11:26] LABS: #Eosinphils 0.1 thou/uL (0.0-0.7); #Lymphocytes 2.2 thou/uL (1.20-3.40); #Monocytes 0.6 thou/uL (0.11-0.59); %Basophils 0.1 % (0.0-1.0); %Eosinophils 0.8 % (0.0-10.0); %Lymphocytes 22.2 % (21.0-51.0); %Monocytes 6.3 % (0.0-10.0); %Neutrophils 70.6 % (42.0-75.0); Mean Corpuscular HGB CONC 33.3 g/dL (32.0-36.0); Mean Corpuscular Hemoglobin 28.8 pg (27.0-31.0); Mean Corpuscular Volume 86.3 fl (78.0-98.0); Mean Platelet Volume 8.3 fL (7.4-10.4); Platelet Count 160 10x3/uL (130-400); RBC Distribution Width 13.5 % (11.5-14.5); White Blood Cell (WBC) Count 9.9 10x3/uL (4.8-10.8)
[2023-03-04 11:49] LABS: ALT (SGPT) 52 U/L (8-55); AST (SGOT) 24 U/L (5-34); Albumin 4.5 g/dL (3.4-4.8); Alkaline Phosphatase 125 U/L (40-110); Anion Gap 12 mmol/L (10-20); BUN (Urea Nitrogen) 17 mg/dL (9.8-20.1); Bilirubin, Total 1.7 mg/dL (0.2-1.2); Calc. Creatinine Clearance 0 mL/min (70-130); Carbon Dioxide 29 mmol/L (23-31); Chloride 104 mmol/L (98-107); Estimated GFR 63; Globulin 2.8 g/dL (2.4-3.5); Glucose 102 mg/dL (83-110); Potassium 4.2 mmol/L (3.5-5.1); Protein, Total 7.3 g/dL (5.8-8.1); Sodium 141 mmol/L (136-145)
[2023-03-04 12:02] LABS: Actual Bicarbonate (HCO3v) 25 mEq/L (22-28); Base Excess 1.9 mEq/L (-2.0 to +3.0); Calcium, Ionized (venous) 1.06 mmol/L (1.16-1.32); Chloride (VBG) 103 mmol/L (98-106); Hemoglobin (Hb) 14.5 g/dL (11.7-16.1); Potassium (VBG) 3.98 mmol/L (3.70-5.30); Sodium 140.6 mmol/L (133-146); pH (venous) 7.49 (7.32-7.43)
[2023-03-04 13:39] LABS: Bacteria/HPF None Seen HPF (None Seen); Bilirubin Negative (Negative); Blood, Urine 2+ (Negative); Clarity Clear (Clear); Glucose, Urine (Dipstick) Normal (Negative); Ketone, Urine Negative (Negative); Leukocyte Negative Leu/uL (Negative); Nitrite Negative (Negative); Protein, Urine (Dipstick) 10 mg/dL (Neg-Trace); Specific Gravity, Urine 1.008 (1.002-1.036); Squamous Epithelial 0-3 HPF (0-3); Urobilinogen Normal mg/dL (Less than 2); WBC/HPF 0-3 HPF (0-3)
[2023-03-04] MEDS ORDERED: Ondansetron PF 4 MG/2 ML Vial IVP PRN (13:44)
[2023-03-04] MEDS ORDERED: Calcium Carbonate 500 MG ChewTAB PO PRN (13:44)
[2023-03-04] MEDS ORDERED: Ondansetron ODT 4 MG TAB PO PRN (13:44)
[2023-03-04] MEDS ORDERED: Acetaminophen 325 MG TAB PO PRN (13:44)
[2023-03-04] MEDS ORDERED: Senokot S 8.6-50 MG TAB PO PRN (13:44)
[2023-03-04] MEDS ORDERED: Albuterol 2.5 MG/0.5 ML NEB ONE (13:59)
[2023-03-04] MEDS ORDERED: Furosemide 40 MG/4 ML VIAL SLOW IVP SCH (14:00)
[2023-03-04 16:59] VITALS: BMI 37.7
[2023-03-04 17:26] LABS: Troponin I Less than 0.010 ng/mL (< 0.028)
[2023-03-04 19:20] LABS: SARS-CoV-2 NAA Rapid Test Not Detected (NotDetected)
[2023-03-04] MEDS: Amiodarone 200 MG TAB PO SCH (20:03)
[2023-03-04] MEDS: Apixaban 5 MG TAB PO SCH (20:03)
[2023-03-04] MEDS ORDERED: Melatonin 3 MG TAB PO PRN (20:27)
[2023-03-04] MEDS ORDERED: Atorvastatin Calcium 40 MG TAB PO SCH (21:00)
[2023-03-04 21:47] LABS: Troponin I Less than 0.010 ng/mL (< 0.028)
[2023-03-05 05:22] LABS: #Eosinphils 0.2 thou/uL (0.0-0.7); #Lymphocytes 2.7 thou/uL (1.20-3.40); #Monocytes 0.9 thou/uL (0.11-0.59); %Eosinophils 1.7 % (0.0-10.0); %Lymphocytes 25.1 % (21.0-51.0); %Monocytes 8.1 % (0.0-10.0); %Neutrophils 65.1 % (42.0-75.0); Hemoglobin 14.7 g/dL (12.0-16.0); Mean Corpuscular HGB CONC 33.9 g/dL (32.0-36.0); Mean Corpuscular Volume 85.7 fl (78.0-98.0); Mean Platelet Volume 8.2 fL (7.4-10.4); Platelet Count 163 10x3/uL (130-400); RBC Distribution Width 13.6 % (11.5-14.5); Red Blood Cell (RBC) Count 5.05 mill/uL (4.20-5.40); White Blood Cell (WBC) Count 10.7 10x3/uL (4.8-10.8)
[2023-03-05] MEDS: Furosemide 20 MG/2 ML VIAL SLOW IVP SCH ×2 (05:47→14:42)
[2023-03-05 05:52] LABS: ALT (SGPT) 39 U/L (8-55); AST (SGOT) 20 U/L (5-34); Alkaline Phosphatase 118 U/L (40-110); Anion Gap 15 mmol/L (10-20); BUN (Urea Nitrogen) 17 mg/dL (9.8-20.1); Bilirubin, Total 1.5 mg/dL (0.2-1.2); Calc. Creatinine Clearance 70 mL/min (70-130); Calcium 9.7 mg/dL (7.8-10.44); Carbon Dioxide 26 mmol/L (23-31); Chloride 105 mmol/L (98-107); Estimated GFR 63; Globulin 2.5 g/dL (2.4-3.5); Glucose 104 mg/dL (83-110); Magnesium 2.1 mg/dL (1.6-2.6); Potassium 3.8 mmol/L (3.5-5.1); Protein, Total 6.5 g/dL (5.8-8.1); Sodium 142 mmol/L (136-145)
[2023-03-05] MEDS: Apixaban 5 MG TAB PO SCH ×2 (09:14→20:02)
[2023-03-05] MEDS: Atorvastatin Calcium 40 MG TAB PO SCH (09:14)
[2023-03-05] MEDS: Aspirin 81 mg Enteric Coated Tablet PO SCH (09:14)
[2023-03-05] MEDS: Amiodarone 200 MG TAB PO SCH ×2 (09:42→20:02)
[2023-03-06 05:37] LABS: #Eosinphils 0.1 thou/uL (0.0-0.7); #Lymphocytes 2.2 thou/uL (1.20-3.40); #Monocytes 0.7 thou/uL (0.11-0.59); #Neutrophils 4.9 thou/uL (1.40-6.50); %Basophils 0.5 % (0.0-1.0); %Eosinophils 1.7 % (0.0-10.0); %Lymphocytes 27.7 % (21.0-51.0); %Monocytes 8.4 % (0.0-10.0); %Neutrophils 61.7 % (42.0-75.0); Hemoglobin 13.5 g/dL (12.0-16.0); Mean Corpuscular HGB CONC 31.3 g/dL (32.0-36.0); Mean Corpuscular Hemoglobin 27.1 pg (27.0-31.0); Mean Corpuscular Volume 86.8 fl (78.0-98.0); Platelet Count 169 10x3/uL (130-400); RBC Distribution Width 13.3 % (11.5-14.5); Red Blood Cell (RBC) Count 4.97 mill/uL (4.20-5.40); White Blood Cell (WBC) Count 7.9 10x3/uL (4.8-10.8)
[2023-03-06 06:05] LABS: Anion Gap 12 mmol/L (10-20); BUN (Urea Nitrogen) 25 mg/dL (9.8-20.1); Calc. Creatinine Clearance 64 mL/min (70-130); Carbon Dioxide 27 mmol/L (23-31); Chloride 102 mmol/L (98-107); Estimated GFR 56; Glucose 97 mg/dL (83-110); Potassium 3.5 mmol/L (3.5-5.1); Sodium 137 mmol/L (136-145)
[2023-03-06] MEDS ORDERED: Furosemide 40 MG TAB PO SCH (07:30)
[2023-03-06] MEDS: Amiodarone 200 MG TAB PO SCH ×2 (08:11→20:07)
[2023-03-06] MEDS: Aspirin 81 mg Enteric Coated Tablet PO SCH (08:11)
[2023-03-06] MEDS: Atorvastatin Calcium 40 MG TAB PO SCH (08:11)
[2023-03-06] MEDS: Apixaban 5 MG TAB PO SCH ×2 (08:11→20:07)
[2023-03-06] MEDS ORDERED: Furosemide 40 MG/4 ML VIAL SLOW IVP SCH (09:00)
[2023-03-06] MEDS: Losartan 25 MG TAB PO SCH (09:45)
[2023-03-07] MEDS: Amiodarone 200 MG TAB PO SCH ×2 (03:52→20:58)
[2023-03-07 05:37] LABS: #Basophils 0.1 thou/uL (0.0-0.2); #Eosinphils 0.2 thou/uL (0.0-0.7); #Lymphocytes 2.4 thou/uL (1.20-3.40); #Monocytes 0.8 thou/uL (0.11-0.59); #Neutrophils 6.2 thou/uL (1.40-6.50); %Basophils 1.2 % (0.0-1.0); %Eosinophils 1.7 % (0.0-10.0); %Neutrophils 64.1 % (42.0-75.0); Hemoglobin 15.3 g/dL (12.0-16.0); Mean Corpuscular HGB CONC 33.4 g/dL (32.0-36.0); Mean Corpuscular Hemoglobin 28.6 pg (27.0-31.0); Mean Corpuscular Volume 85.7 fl (78.0-98.0); Mean Platelet Volume 8.3 fL (7.4-10.4); Platelet Count 181 10x3/uL (130-400); RBC Distribution Width 13.5 % (11.5-14.5); Red Blood Cell (RBC) Count 5.34 mill/uL (4.20-5.40); White Blood Cell (WBC) Count 9.7 10x3/uL (4.8-10.8)
[2023-03-07 05:58] LABS: Anion Gap 14 mmol/L (10-20); BUN (Urea Nitrogen) 28 mg/dL (9.8-20.1); Calc. Creatinine Clearance 64 mL/min (70-130); Calcium 9.4 mg/dL (7.8-10.44); Carbon Dioxide 26 mmol/L (23-31); Chloride 104 mmol/L (98-107); Estimated GFR 57; Glucose 113 mg/dL (83-110); Magnesium 2.2 mg/dL (1.6-2.6); Potassium 3.5 mmol/L (3.5-5.1); Sodium 140 mmol/L (136-145)
[2023-03-07] MEDS: Apixaban 5 MG TAB PO SCH ×2 (09:59→20:58)
[2023-03-07] MEDS: Furosemide 40 MG/4 ML VIAL SLOW IVP SCH (09:59)
[2023-03-07] MEDS: Atorvastatin Calcium 40 MG TAB PO SCH (09:59)
[2023-03-07] MEDS: Aspirin 81 mg Enteric Coated Tablet PO SCH (09:59)
[2023-03-07] MEDS: Losartan 25 MG TAB PO SCH (09:59)
[2023-03-08 05:05] LABS: #Eosinphils 0.2 thou/uL (0.0-0.7); #Lymphocytes 2.6 thou/uL (1.20-3.40); #Monocytes 0.8 thou/uL (0.11-0.59); #Neutrophils 6.2 thou/uL (1.40-6.50); %Basophils 0.4 % (0.0-1.0); %Eosinophils 2.2 % (0.0-10.0); %Lymphocytes 26.1 % (21.0-51.0); %Neutrophils 63.2 % (42.0-75.0); Hemoglobin 13.9 g/dL (12.0-16.0); Mean Corpuscular Hemoglobin 27.6 pg (27.0-31.0); Mean Corpuscular Volume 86.3 fl (78.0-98.0); Mean Platelet Volume 8.2 fL (7.4-10.4); Platelet Count 182 10x3/uL (130-400); RBC Distribution Width 13.3 % (11.5-14.5); Red Blood Cell (RBC) Count 5.05 mill/uL (4.20-5.40); White Blood Cell (WBC) Count 9.9 10x3/uL (4.8-10.8)
[2023-03-08 05:27] LABS: Anion Gap 16 mmol/L (10-20); BUN (Urea Nitrogen) 33 mg/dL (9.8-20.1); Calc. Creatinine Clearance 60 mL/min (70-130); Calcium 9.3 mg/dL (7.8-10.44); Carbon Dioxide 24 mmol/L (23-31); Chloride 102 mmol/L (98-107); Estimated GFR 53; Glucose 99 mg/dL (83-110); Potassium 3.6 mmol/L (3.5-5.1); Sodium 138 mmol/L (136-145)
[2023-03-08] MEDS: Amiodarone 200 MG TAB PO SCH (08:23)
[2023-03-08] MEDS: Aspirin 81 mg Enteric Coated Tablet PO SCH (08:23)
[2023-03-08] MEDS: Atorvastatin Calcium 40 MG TAB PO SCH (08:23)
[2023-03-08] MEDS: Losartan 25 MG TAB PO SCH (08:23)
[2023-03-08] MEDS: Apixaban 5 MG TAB PO SCH (08:23)
[2023-03-08] MEDS ORDERED: Regadenoson 0.4 MG/5 ML SYRINGE ONE (09:18)
[2023-03-08] MEDS: Furosemide 40 MG/4 ML VIAL SLOW IVP SCH (12:27)
[2023-03-08 17:21] VITALS: BP 119/49; TEMP 98.8
== END 2023-03-08 17:10 | disposition home or self-care (01) | DRG 291 ==
LOC: SUATTDRO 10:50 → ERS 10:50 → 2SW 13:40 → OBSVTOIN 03-06 11:08
PROVIDERS: ADMIT Internal Medicine; ATTEND Internal Medicine
DX: I11.0 Hypertensive heart disease with heart failure (principal); I50.33 Acute on chronic diastolic (congestive) heart failure; J96.01 Acute respiratory failure with hypoxia; E78.5 Hyperlipidemia, unspecified; I48.0 Paroxysmal atrial fibrillation; R00.1 Bradycardia, unspecified; Z79.82 Long term (current) use of aspirin; Z79.01 Long term (current) use of anticoagulants; Z79.899 Other long term (current) drug therapy
CPT/HCPCS: 36415; 71045; 78452; 80048; 80053; 81003; 81015; 82805; 83735; 83880; 84484; 85025; 93005; 93010; 93017; 93306; 94760; 96374; 96376; A9500; G0378; J1940; J2785; J7611; U0002

== ENCOUNTER 2023-08-30 12:15 | Emergency (ER) | payer MEDICARE ==
[2023-08-30 13:11] LABS: #Eosinphils 0.2 thou/uL (0.0-0.7); #Monocytes 0.5 thou/uL (0.11-0.59); #Neutrophils 4.9 thou/uL (1.40-6.50); %Basophils 0.4 % (0.0-1.0); %Lymphocytes 26.7 % (21.0-51.0); %Monocytes 6.9 % (0.0-10.0); %Neutrophils 63.6 % (42.0-75.0); Hematocrit 39.6 % (36.0-47.0); Hemoglobin 13.1 g/dL (12.0-16.0); Mean Corpuscular HGB CONC 33.1 g/dL (32.0-36.0); Mean Corpuscular Hemoglobin 28.4 pg (27.0-31.0); Mean Corpuscular Volume 85.9 fl (78.0-98.0); Mean Platelet Volume 9.8 fL (7.4-10.4); Platelet Count 179 10x3/uL (130-400); Red Blood Cell (RBC) Count 4.61 mill/uL (4.20-5.40); White Blood Cell (WBC) Count 7.7 10x3/uL (4.8-10.8)
[2023-08-30 13:36] LABS: ALT (SGPT) 21 U/L (8-55); AST (SGOT) 20 U/L (5-34); Alkaline Phosphatase 103 U/L (40-110); Anion Gap 13 mmol/L (10-20); BUN (Urea Nitrogen) 20 mg/dL (9.8-20.1); Bilirubin, Total 0.9 mg/dL (0.2-1.2); Calc. Creatinine Clearance 0 mL/min (70-130); Calcium 9.3 mg/dL (7.8-10.44); Carbon Dioxide 26 mmol/L (23-31); Chloride 105 mmol/L (98-107); Estimated GFR 54; Globulin 2.6 g/dL (2.4-3.5); Glucose 96 mg/dL (83-110); Magnesium 1.9 mg/dL (1.6-2.6); Potassium 3.8 mmol/L (3.5-5.1); Protein, Total 6.6 g/dL (5.8-8.1); Sodium 140 mmol/L (136-145)
== END 2023-08-30 14:05 | disposition home or self-care (01) ==
LOC: ERS 12:15
DX: R55 Syncope and collapse (principal); I25.10 Atherosclerotic heart disease of native coronary artery without angina pectoris; I48.91 Unspecified atrial fibrillation; I10 Essential (primary) hypertension; Z87.891 Personal history of nicotine dependence; Z79.01 Long term (current) use of anticoagulants
CPT/HCPCS: 36415; 70450; 72125; 80053; 83735; 85025; 93005

== ENCOUNTER 2023-09-10 17:33 | Inpatient (IN) | payer MEDICARE ==
[~2023-09-10 17:33] MED LIST changes: -Acetaminophen 500 MG TAB ONE; +Iopamidol-370 76% 500 ML MDV (1 ML CHARGE) ONE; -Ondansetron PF 4 MG/2 ML Vial ONE; -cefTRIAXone\\ROCEPHIN 1 GM VIAL ONE
[2023-09-10] MEDS ORDERED: Aspirin Chewable 81 MG TAB ONE (17:59)
[2023-09-10] MEDS ORDERED: Morphine 4 MG/ML VIAL ONE (17:59)
[2023-09-10] MEDS ORDERED: hydrALAZINE 20 MG/ML VIAL ONE (18:00)
[2023-09-10] MEDS ORDERED: Ondansetron PF 4 MG/2 ML Vial ONE ×2 (18:05→19:09)
[2023-09-10 19:06] LABS: #Eosinphils 0.2 thou/uL (0.0-0.7); #Monocytes 0.6 thou/uL (0.11-0.59); #Neutrophils 6.6 thou/uL (1.40-6.50); %Basophils 0.3 % (0.0-1.0); %Eosinophils 2.1 % (0.0-10.0); %Lymphocytes 22.3 % (21.0-51.0); %Monocytes 6.4 % (0.0-10.0); %Neutrophils 68.5 % (42.0-75.0); Hematocrit 37.8 % (36.0-47.0); Hemoglobin 12.5 g/dL (12.0-16.0); Mean Corpuscular HGB CONC 33.1 g/dL (32.0-36.0); Mean Corpuscular Hemoglobin 28.6 pg (27.0-31.0); Mean Corpuscular Volume 86.5 fl (78.0-98.0); Mean Platelet Volume 10.4 fL (7.4-10.4); Platelet Count 188 10x3/uL (130-400); RBC Distribution Width 13.8 % (11.5-14.5); Red Blood Cell (RBC) Count 4.37 mill/uL (4.20-5.40); White Blood Cell (WBC) Count 9.7 10x3/uL (4.8-10.8)
[2023-09-10 19:30] LABS: ALT (SGPT) 52 U/L (8-55); AST (SGOT) 92 U/L (5-34); Albumin 4.1 g/dL (3.4-4.8); Alkaline Phosphatase 231 U/L (40-110); Anion Gap 12 mmol/L (10-20); BUN (Urea Nitrogen) 20 mg/dL (9.8-20.1); Bilirubin, Total 1.4 mg/dL (0.2-1.2); Calc. Creatinine Clearance 0 mL/min (70-130); Calcium 8.9 mg/dL (7.8-10.44); Carbon Dioxide 25 mmol/L (23-31); Chloride 108 mmol/L (98-107); Estimated GFR 71; Globulin 2.2 g/dL (2.4-3.5); Glucose 138 mg/dL (83-110); Lipase 32 U/L (8-78); Potassium 3.6 mmol/L (3.5-5.1); Protein, Total 6.3 g/dL (5.8-8.1); Sodium 141 mmol/L (136-145)
[2023-09-10 19:34] LABS: Troponin I Less than 0.010 ng/mL (< 0.028)
[2023-09-10] MEDS ORDERED: Acetaminophen 325 MG TAB PO PRN (20:18)
[2023-09-10] MEDS ORDERED: hydrALAZINE 20 MG/ML VIAL SLOW IVP PRN (20:27)
[2023-09-10] MEDS ORDERED: Apixaban 5 MG TAB PO SCH (21:00)
[2023-09-10 22:13] LABS: Troponin I Less than 0.010 ng/mL (< 0.028)
[2023-09-10 22:47] VITALS: BMI 38.0
[2023-09-11 01:53] LABS: Troponin I Less than 0.010 ng/mL (< 0.028)
[2023-09-11 05:21] LABS: #Neutrophils 12.4 thou/uL (1.40-6.50); %Basophils 0.1 % (0.0-1.0); %Lymphocytes 5.5 % (21.0-51.0); %Monocytes 7.2 % (0.0-10.0); %Neutrophils 86.7 % (42.0-75.0); Hematocrit 40.9 % (36.0-47.0); Hemoglobin 13.2 g/dL (12.0-16.0); Mean Corpuscular HGB CONC 32.3 g/dL (32.0-36.0); Mean Corpuscular Hemoglobin 28.1 pg (27.0-31.0); Mean Platelet Volume 10.8 fL (7.4-10.4); Platelet Count 184 10x3/uL (130-400); RBC Distribution Width 13.9 % (11.5-14.5); White Blood Cell (WBC) Count 14.3 10x3/uL (4.8-10.8)
[2023-09-11 05:32] LABS: Bacteria/HPF None Seen HPF (None Seen); Bilirubin Negative (Negative); Blood, Urine 2+ (Negative); Clarity Clear (Clear); Glucose, Urine (Dipstick) 30 mg/dL (Negative); Ketone, Urine Negative (Negative); Leukocyte Negative Leu/uL (Negative); Nitrite Negative (Negative); Protein, Urine (Dipstick) 30 mg/dL (Neg-Trace); RBC/HPF 21-50 HPF (0-3); Specific Gravity, Urine 1.033 (1.002-1.036); Squamous Epithelial 0-3 HPF (0-3); WBC/HPF 0-3 HPF (0-3)
[2023-09-11 05:51] LABS: Troponin I Less than 0.010 ng/mL (< 0.028)
[2023-09-11 06:03] LABS: ALT (SGPT) 262 U/L (8-55); AST (SGOT) 327 U/L (5-34); Albumin 4.2 g/dL (3.4-4.8); Alkaline Phosphatase 331 U/L (40-110); Anion Gap 16 mmol/L (10-20); BUN (Urea Nitrogen) 18 mg/dL (9.8-20.1); Bilirubin, Total 3.2 mg/dL (0.2-1.2); Calc. Creatinine Clearance 82 mL/min (70-130); Calcium 9.1 mg/dL (7.8-10.44); Carbon Dioxide 25 mmol/L (23-31); Chloride 105 mmol/L (98-107); Estimated GFR 73; Glucose 133 mg/dL (83-110); Potassium 4.1 mmol/L (3.5-5.1); Protein, Total 6.2 g/dL (5.8-8.1); Sodium 142 mmol/L (136-145)
[2023-09-11] MEDS ORDERED: Ampicillin/Sulbactam 3 GM in Sodium Chloride 0.9% 100 ML IVPB SCH (08:30)
[2023-09-11] MEDS ORDERED: Atorvastatin Calcium 40 MG TAB PO SCH (09:00)
[2023-09-11 09:06] LABS: INR-International Normal Ratio 1.2; Prothrombin Time 15.7 sec (12.0-14.7)
[2023-09-11] MEDS: Metoprolol Tartrate 25 MG TAB PO SCH (09:54)
[2023-09-11] MEDS: Doxycycline 100 MG in Sodium Chloride 0.9% 100 ML IVPB SCH ×2 (09:54→21:54)
[2023-09-11] MEDS: Amiodarone 200 MG TAB PO SCH ×2 (09:54→20:59)
[2023-09-11] MEDS: Losartan 25 MG TAB PO SCH (09:54)
[2023-09-11 11:37] LABS: SARS-CoV-2 NAA Rapid Test Not Detected (NotDetected)
[2023-09-11] MEDS: Ondansetron PF 4 MG/2 ML Vial IVP PRN (12:19)
[2023-09-11 12:25] LABS: Legionella Urinary Ag Negative (Negative); Strep pneumo Urine Ag NEGATIVE (NEGATIVE)
[2023-09-11] MEDS ORDERED: Morphine 2 MG/ML VIAL SLOW IVP SCH (14:45)
[2023-09-11] MEDS: Ampicillin/Sulbactam 3 GM in Sodium Chloride 0.9% 100 ML IVPB SCH ×2 (16:21→20:59)
[2023-09-12] MEDS: Ampicillin/Sulbactam 3 GM in Sodium Chloride 0.9% 100 ML IVPB SCH ×3 (03:00→17:59)
[2023-09-12 05:14] LABS: #Eosinphils 0.1 thou/uL (0.0-0.7); #Neutrophils 7.8 thou/uL (1.40-6.50); %Basophils 0.1 % (0.0-1.0); %Eosinophils 0.7 % (0.0-10.0); %Lymphocytes 13.1 % (21.0-51.0); %Monocytes 9.4 % (0.0-10.0); %Neutrophils 76.3 % (42.0-75.0); Hematocrit 35.9 % (36.0-47.0); Hemoglobin 11.6 g/dL (12.0-16.0); Mean Corpuscular HGB CONC 32.3 g/dL (32.0-36.0); Mean Corpuscular Hemoglobin 28.4 pg (27.0-31.0); Mean Corpuscular Volume 87.8 fl (78.0-98.0); Mean Platelet Volume 10.6 fL (7.4-10.4); Platelet Count 171 10x3/uL (130-400); RBC Distribution Width 14.2 % (11.5-14.5); Red Blood Cell (RBC) Count 4.09 mill/uL (4.20-5.40); White Blood Cell (WBC) Count 10.2 10x3/uL (4.8-10.8)
[2023-09-12 05:23] LABS: Hemoglobin A1c 4.8 % (4.0-6.0)
[2023-09-12 05:38] LABS: ALT (SGPT) 257 U/L (8-55); AST (SGOT) 176 U/L (5-34); Albumin 3.7 g/dL (3.4-4.8); Alkaline Phosphatase 310 U/L (40-110); Anion Gap 11 mmol/L (10-20); BUN (Urea Nitrogen) 17 mg/dL (9.8-20.1); Calc. Creatinine Clearance 79 mL/min (70-130); Calcium 8.7 mg/dL (7.8-10.44); Carbon Dioxide 30 mmol/L (23-31); Cardiac Risk 2.3 (Less than 4.5); Chloride 104 mmol/L (98-107); Cholesterol 102 mg/dl (< 200 Desired); Estimated GFR 70; Globulin 2.1 g/dL (2.4-3.5); Glucose 102 mg/dL (83-110); HDL Cholesterol 44 mg/dL (>60 Neg Risk); LDL Cholesterol, Calculated 47 mg/dL; Potassium 3.4 mmol/L (3.5-5.1); Protein, Total 5.8 g/dL (5.8-8.1); Sodium 142 mmol/L (136-145); Triglycerides 54 mg/dL (Less than 150)
[2023-09-12] MEDS: Metoprolol Tartrate 25 MG TAB PO SCH (05:43)
[2023-09-12] MEDS ORDERED: fentaNYL PF 100 MCG/2 ML SYRINGE ONE (06:17)
[2023-09-12] MEDS ORDERED: fentaNYL 50 mcg/mL 1 mL Vial ONE (06:17)
[2023-09-12] MEDS ORDERED: SUGAMMADEX SODIUM 200 MG/2 ML VIAL ONE (06:18)
[2023-09-12] MEDS ORDERED: Iopamidol 15 ML ONE (06:38)
[2023-09-12] MEDS ORDERED: Bupivacaine PF 0.5% 30 ML VIAL ONE (06:38)
[2023-09-12] MEDS ORDERED: EPINEPHrine 1 MG/ML AMP ONE (06:38)
[2023-09-12] MEDS ORDERED: Glucagon 1 MG/ML KIT ONE (06:38)
[2023-09-12] MEDS ORDERED: Ibuprofen 600 MG TAB PO PRN (07:42)
[2023-09-12] MEDS ORDERED: Lidocaine 1% PF 5 ML VIAL ONE (07:43)
[2023-09-12] MEDS ORDERED: Rocuronium Bromide 10 MG/ML (10ML VIAL) ONE (07:43)
[2023-09-12] MEDS ORDERED: PROPOFOL 200 MG/20 ML VIAL ONE (07:43)
[2023-09-12] MEDS ORDERED: Potassium Chloride 20 MEQ TAB PO SCH (07:45)
[2023-09-12] MEDS ORDERED: Acetaminophen 500 MG TAB PO SCH (07:45)
[2023-09-12] MEDS ORDERED: metFORMIN 500 MG TAB PO SCH (08:00)
[2023-09-12] MEDS: Aspirin 81 mg Enteric Coated Tablet PO SCH (10:12)
[2023-09-12] MEDS: Ondansetron PF 4 MG/2 ML Vial IVP PRN ×2 (10:12→18:09)
[2023-09-12] MEDS: Losartan 25 MG TAB PO SCH (10:14)
[2023-09-12] MEDS: Amiodarone 200 MG TAB PO SCH ×2 (10:14→20:26)
[2023-09-12] MEDS: traMADol HCl 50 MG TAB PO PRN (12:40)
[2023-09-12] MEDS: Acetaminophen 500 MG TAB PO SCH ×3 (17:58→21:38)
[2023-09-12] MEDS ORDERED: Morphine 4 MG/ML VIAL SLOW IVP SCH (18:00)
[2023-09-12] MEDS: Doxycycline 100 MG in Sodium Chloride 0.9% 100 ML IVPB SCH (20:27)
[2023-09-12] MEDS ORDERED: Morphine 2 MG/ML VIAL SLOW IVP PRN (22:00)
[2023-09-13] MEDS: Ampicillin/Sulbactam 3 GM in Sodium Chloride 0.9% 100 ML IVPB SCH ×4 (00:15→19:43)
[2023-09-13] MEDS: traMADol HCl 50 MG TAB PO PRN (02:50)
[2023-09-13 04:57] LABS: #Eosinphils 0.1 thou/uL (0.0-0.7); #Monocytes 0.8 thou/uL (0.11-0.59); #Neutrophils 8.6 thou/uL (1.40-6.50); %Basophils 0.1 % (0.0-1.0); %Eosinophils 0.5 % (0.0-10.0); %Monocytes 7.8 % (0.0-10.0); Hematocrit 34.9 % (36.0-47.0); Hemoglobin 11.1 g/dL (12.0-16.0); Mean Corpuscular HGB CONC 31.8 g/dL (32.0-36.0); Mean Corpuscular Hemoglobin 28.5 pg (27.0-31.0); Mean Corpuscular Volume 89.5 fl (78.0-98.0); Mean Platelet Volume 10.9 fL (7.4-10.4); Platelet Count 159 10x3/uL (130-400); RBC Distribution Width 14.2 % (11.5-14.5); White Blood Cell (WBC) Count 10.7 10x3/uL (4.8-10.8)
[2023-09-13 05:18] LABS: ALT (SGPT) 206 U/L (8-55); AST (SGOT) 127 U/L (5-34); Albumin 3.5 g/dL (3.4-4.8); Alkaline Phosphatase 248 U/L (40-110); Anion Gap 13 mmol/L (10-20); BUN (Urea Nitrogen) 18 mg/dL (9.8-20.1); Bilirubin, Total 1.8 mg/dL (0.2-1.2); Calc. Creatinine Clearance 84 mL/min (70-130); Calcium 8.7 mg/dL (7.8-10.44); Carbon Dioxide 25 mmol/L (23-31); Chloride 105 mmol/L (98-107); Estimated GFR 75; Globulin 2.2 g/dL (2.4-3.5); Glucose 97 mg/dL (83-110); Potassium 3.6 mmol/L (3.5-5.1); Protein, Total 5.7 g/dL (5.8-8.1); Sodium 139 mmol/L (136-145)
[2023-09-13] MEDS ORDERED: Potassium Chloride 20 MEQ TAB PO SCH (08:00)
[2023-09-13] MEDS ORDERED: traMADol HCl 50 MG TAB PO PRN (08:58)
[2023-09-13] MEDS ORDERED: FLU VACC QS2023(65UP)/MF59C/PF 60 MCG/0.5 ML SYRINGE IM ONE (09:00)
[2023-09-13] MEDS ORDERED: Bisacodyl 5 MG TAB PO PRN (10:16)
[2023-09-13] MEDS ORDERED: Senokot S 8.6-50 MG TAB PO PRN (10:17)
[2023-09-13] MEDS ORDERED: Bisacodyl 5 MG TAB PO SCH (10:30)
[2023-09-13] MEDS: Amiodarone 200 MG TAB PO SCH ×2 (10:42→21:34)
[2023-09-13] MEDS: Aspirin 81 mg Enteric Coated Tablet PO SCH (10:42)
[2023-09-13] MEDS: Losartan 25 MG TAB PO SCH (10:42)
[2023-09-13] MEDS: Acetaminophen 500 MG TAB PO SCH ×4 (10:43→21:34)
[2023-09-13] MEDS: Doxycycline 100 MG in Sodium Chloride 0.9% 100 ML IVPB SCH ×2 (10:46→21:34)
[2023-09-13] MEDS: Metoprolol Tartrate 25 MG TAB PO SCH (10:51)
[2023-09-13] MEDS: traMADol HCl 50 MG TAB PO SCH ×2 (15:48→18:10)
[2023-09-14] MEDS: traMADol HCl 50 MG TAB PO SCH ×5 (00:11→23:56)
[2023-09-14] MEDS: Ampicillin/Sulbactam 3 GM in Sodium Chloride 0.9% 100 ML IVPB SCH ×5 (00:12→23:56)
[2023-09-14 04:56] LABS: #Eosinphils 0.1 thou/uL (0.0-0.7); #Monocytes 0.9 thou/uL (0.11-0.59); #Neutrophils 7.4 thou/uL (1.40-6.50); %Basophils 0.3 % (0.0-1.0); %Eosinophils 1.2 % (0.0-10.0); %Lymphocytes 14.4 % (21.0-51.0); %Monocytes 9.2 % (0.0-10.0); %Neutrophils 73.9 % (42.0-75.0); Hematocrit 32.4 % (36.0-47.0); Hemoglobin 10.2 g/dL (12.0-16.0); Mean Corpuscular HGB CONC 31.5 g/dL (32.0-36.0); Mean Corpuscular Hemoglobin 27.6 pg (27.0-31.0); Mean Corpuscular Volume 87.6 fl (78.0-98.0); Mean Platelet Volume 10.7 fL (7.4-10.4); Platelet Count 170 10x3/uL (130-400)
[2023-09-14 07:06] LABS: ALT (SGPT) 132 U/L (8-55); AST (SGOT) 54 U/L (5-34); Albumin 3.3 g/dL (3.4-4.8); Alkaline Phosphatase 191 U/L (40-110); Anion Gap 13 mmol/L (10-20); BUN (Urea Nitrogen) 18 mg/dL (9.8-20.1); Bilirubin, Total 1.2 mg/dL (0.2-1.2); Calc. Creatinine Clearance 87 mL/min (70-130); Calcium 8.7 mg/dL (7.8-10.44); Carbon Dioxide 26 mmol/L (23-31); Chloride 103 mmol/L (98-107); Estimated GFR 79; Globulin 2.3 g/dL (2.4-3.5); Glucose 94 mg/dL (83-110); Magnesium 2.1 mg/dL (1.6-2.6); Potassium 3.5 mmol/L (3.5-5.1); Protein, Total 5.6 g/dL (5.8-8.1); Sodium 138 mmol/L (136-145)
[2023-09-14] MEDS: Amiodarone 200 MG TAB PO SCH ×2 (08:01→20:24)
[2023-09-14] MEDS: Metoprolol Tartrate 25 MG TAB PO SCH (08:01)
[2023-09-14] MEDS: Losartan 25 MG TAB PO SCH (08:01)
[2023-09-14] MEDS: Apixaban 5 MG TAB PO SCH ×2 (08:02→20:24)
[2023-09-14] MEDS: Doxycycline 100 MG in Sodium Chloride 0.9% 100 ML IVPB SCH ×2 (08:02→20:24)
[2023-09-14] MEDS: Aspirin 81 mg Enteric Coated Tablet PO SCH (08:02)
[2023-09-14] MEDS: Acetaminophen 500 MG TAB PO SCH ×4 (08:02→20:24)
[2023-09-15] MEDS: traMADol HCl 50 MG TAB PO SCH ×3 (05:57→18:11)
[2023-09-15] MEDS: Ampicillin/Sulbactam 3 GM in Sodium Chloride 0.9% 100 ML IVPB SCH ×2 (05:58→12:12)
[2023-09-15] MEDS: Apixaban 5 MG TAB PO SCH ×2 (08:52→20:26)
[2023-09-15] MEDS: Aspirin 81 mg Enteric Coated Tablet PO SCH (08:53)
[2023-09-15] MEDS: Losartan 25 MG TAB PO SCH (08:53)
[2023-09-15] MEDS: Acetaminophen 500 MG TAB PO SCH ×4 (08:53→22:44)
[2023-09-15] MEDS: Amiodarone 200 MG TAB PO SCH ×2 (08:53→20:26)
[2023-09-15] MEDS: Doxycycline 100 MG in Sodium Chloride 0.9% 100 ML IVPB SCH (08:53)
[2023-09-15] MEDS: Metoprolol Tartrate 25 MG TAB PO SCH (08:53)
[2023-09-15] MEDS: Ondansetron PF 4 MG/2 ML Vial IVP PRN ×2 (12:13→22:40)
[2023-09-15] MEDS ORDERED: Amoxicillin/Potassium Clav 875 MG TAB PO SCH (21:00)
[2023-09-15] MEDS ORDERED: ALPRAZolam 0.25 MG TAB PO SCH (23:45)
[2023-09-16] MEDS: traMADol HCl 50 MG TAB PO SCH ×2 (00:08→05:10)
[2023-09-16 07:55] VITALS: BP 187/72; TEMP 98.1
[2023-09-16] MEDS: Metoprolol Tartrate 25 MG TAB PO SCH (09:00)
[2023-09-16] MEDS: Apixaban 5 MG TAB PO SCH (09:00)
[2023-09-16] MEDS: Amiodarone 200 MG TAB PO SCH (09:00)
[2023-09-16] MEDS: Losartan 25 MG TAB PO SCH (09:00)
[2023-09-16] MEDS: Acetaminophen 500 MG TAB PO SCH (09:01)
[2023-09-16] MEDS: Aspirin 81 mg Enteric Coated Tablet PO SCH (09:01)
== END 2023-09-16 11:05 | disposition home or self-care (01) | DRG 417 ==
LOC: ERS 17:33 → 2SE 20:03 → 2SW 22:30 → T4-B 09-13 19:32
PROVIDERS: ADMIT Internal Medicine; ATTEND Internal Medicine
PROC: 0FT44ZZ Resection of Gallbladder, Percutaneous Endoscopic Approach (ICD-10-PCS; principal; 2023-09-12)
PROC: BF101ZZ Fluoroscopy of Bile Ducts using Low Osmolar Contrast (ICD-10-PCS; 2023-09-12)
DX: K80.12 Calculus of gallbladder with acute and chronic cholecystitis without obstruction (principal); J69.0 Pneumonitis due to inhalation of food and vomit; J96.01 Acute respiratory failure with hypoxia; G45.9 Transient cerebral ischemic attack, unspecified; I16.1 Hypertensive emergency; I48.91 Unspecified atrial fibrillation; I25.10 Atherosclerotic heart disease of native coronary artery without angina pectoris; K21.9 Gastro-esophageal reflux disease without esophagitis; E78.2 Mixed hyperlipidemia; E03.9 Hypothyroidism, unspecified; I35.0 Nonrheumatic aortic (valve) stenosis; Z20.822 Contact with and (suspected) exposure to COVID-19; Z86.73 Personal history of transient ischemic attack (TIA), and cerebral infarction without residual deficits; Z90.49 Acquired absence of other specified parts of digestive tract; Z98.890 Other specified postprocedural states; Z87.891 Personal history of nicotine dependence; Z79.01 Long term (current) use of anticoagulants; Z79.82 Long term (current) use of aspirin; Z79.899 Other long term (current) drug therapy
CPT/HCPCS: 36415; 47532; 70450; 71045; 71250; 71275; 74174; 74177; 76705; 78227; 80053; 80061; 81001; 82140; 83036; 83690; 83735; 84145; 84484; 85025; 85610; 86140; 87040; 87449; 87899; 88304; 90471; 90694; 93005; 93306; 93880; 96374; 96375; 96376; A9537; C1889; G0008; J0171; J0295; J0360; J1611; J2270; J2272; J2405; J2704; J3010; J3490; Q9967; S0020; U0002

== ENCOUNTER 2023-09-29 11:27 | Outpatient (CLI) | payer MEDICARE | END 2023-09-29 11:28 | disposition home or self-care (01) | LOC: SCSRAD 11:27 | PROVIDERS: ATTEND Family Medicine | DX: J16.8 Pneumonia due to other specified infectious organisms (principal); I27.20 Pulmonary hypertension, unspecified; I51.7 Cardiomegaly | CPT/HCPCS: 71046 ==

== ENCOUNTER 2023-12-14 10:26 | Outpatient (CLI) | payer MEDICARE | END 2023-12-14 10:27 | disposition home or self-care (01) | LOC: SCSRAD 10:26 | PROVIDERS: ATTEND Family Medicine | DX: M25.551 Pain in right hip (principal); M16.11 Unilateral primary osteoarthritis, right hip ==

== ENCOUNTER 2024-01-09 13:10 | Outpatient (CLI) | payer MEDICARE | END 2024-01-09 13:11 | disposition home or self-care (01) | LOC: SCSMRI 13:10 | PROVIDERS: ATTEND Orthopaedic Surgery | DX: M16.11 Unilateral primary osteoarthritis, right hip (principal); S73.191A Other sprain of right hip, initial encounter; M24.851 Other specific joint derangements of right hip, not elsewhere classified; R60.0 Localized edema; M25.751 Osteophyte, right hip ==

== ENCOUNTER 2024-02-16 09:58 | Outpatient (CLI) | payer MEDICARE ==
[2024-02-16 12:03] LABS: #Eosinphils 0.2 10x3/uL (0.0-0.5); #Monocytes 0.6 10x3/uL (0.0-1.1); #Neutrophils 4.9 10x3/uL (1.5-8.4); %Basophils 0.4 % (0.0-2.0); %Eosinophils 2.3 % (0.0-6.0); %Lymphocytes 26.5 % (18.0-47.0); %Monocytes 7.8 % (0.0-10.0); %Neutrophils 62.6 % (40.0-75.0); Hematocrit 41.9 % (34.9-44.5); Hemoglobin 13.5 g/dL (12.0-15.5); Mean Corpuscular HGB CONC 32.2 g/dL (32.0-36.0); Mean Corpuscular Volume 86.7 fl (81.6-98.3); Mean Platelet Volume 10.6 fl (7.4-10.4); Platelet Count 219 10x3/uL (150-450); RBC Distribution Width 14.7 % (11.5-14.5); Red Blood Cell (RBC) Count 4.83 10x6/uL (3.90-5.03); White Blood Cell (WBC) Count 7.8 10x3/uL (3.5-10.5)
[2024-02-16 12:27] LABS: INR-International Normal Ratio 0.9; Prothrombin Time 10.2 sec (9.5-12.1)
[2024-02-16 12:32] LABS: Anion Gap 11 mmol/L (10-20); BUN (Urea Nitrogen) 23 mg/dL (9.8-20.1); Calc. Creatinine Clearance 0 mL/min (70-130); Calcium 9.1 mg/dL (7.8-10.44); Carbon Dioxide 28 mmol/L (23-31); Chloride 106 mmol/L (98-107); Estimated GFR 67; Glucose 104 mg/dL (83-110); Potassium 4.1 mmol/L (3.5-5.1); Sodium 141 mmol/L (136-145)
== END 2024-02-16 09:59 | disposition home or self-care (01) ==
LOC: LABBT 09:58
PROVIDERS: ATTEND Orthopaedic Surgery
DX: Z01.818 Encounter for other preprocedural examination (principal); M16.11 Unilateral primary osteoarthritis, right hip
CPT/HCPCS: 80048; 85025; 85610; 87081; 93005; 93010

== ENCOUNTER 2024-08-30 09:30 | Inpatient (IN) | payer MEDICARE, OTHER ==
[2024-08-30 09:45] VITALS: BMI 37.2
[2024-08-30 10:42] LABS: Hematocrit 41.7 % (36.0-47.0); Hemoglobin 13.3 g/dL (12.0-16.0); Mean Corpuscular HGB CONC 31.9 g/dL (32.0-36.0); Mean Corpuscular Volume 84.6 fL (78.0-98.0); Mean Platelet Volume 9.9 fL (7.4-10.4); Platelet Count 200 10x3/uL (130-400); RBC Distribution Width 14.9 % (11.5-14.5); Red Blood Cell (RBC) Count 4.93 mill/uL (4.20-5.40)
[2024-08-30 10:56] LABS: INR-International Normal Ratio 1.2; PTT 34.2 sec (22.9-36.1); Prothrombin Time 15.5 sec (12.0-14.7)
[2024-08-30 11:02] LABS: ALT (SGPT) 24 U/L (8-55); AST (SGOT) 21 U/L (5-34); Albumin 3.7 g/dL (3.4-4.8); Alkaline Phosphatase 108 U/L (40-110); Anion Gap 12 mmol/L (10-20); BUN (Urea Nitrogen) 23 mg/dL (9.8-20.1); Bilirubin, Total 1.1 mg/dL (0.2-1.2); Calc. Creatinine Clearance 0 mL/min (70-130); Calcium 9.6 mg/dL (7.8-10.44); Carbon Dioxide 27 mmol/L (23-31); Chloride 106 mmol/L (98-107); Estimated GFR 65; Globulin 2.8 g/dL (2.4-3.5); Glucose 96 mg/dL (83-110); Potassium 4.4 mmol/L (3.5-5.1); Protein, Total 6.5 g/dL (5.8-8.1); Sodium 141 mmol/L (136-145)
[2024-09-03] MEDS ORDERED: Clindamycin/D5W 900 mg/50 ml Premix Bag ONE (07:24)
[2024-09-03] MEDS ORDERED: SUGAMMADEX SODIUM 200 MG/2 ML VIAL ONE ×2 (07:26→08:40)
[2024-09-03] MEDS ORDERED: fentaNYL PF 100 MCG/2 ML SYRINGE ONE (07:26)
[2024-09-03] MEDS ORDERED: Norepinephrine 4 MG/4 ML VIAL ONE (07:26)
[2024-09-03] MEDS ORDERED: Dexamethasone 20 MG/5 ML VIAL ONE (07:42)
[2024-09-03] MEDS ORDERED: Lidocaine 1% PF 5 ML VIAL ONE (07:42)
[2024-09-03] MEDS ORDERED: PROPOFOL 200 MG/20 ML VIAL ONE (07:42)
[2024-09-03] MEDS ORDERED: Rocuronium Bromide 10 MG/ML (10ML VIAL) ONE (07:42)
[2024-09-03] MEDS ORDERED: Ondansetron PF 4 MG/2 ML Vial ONE (07:42)
[2024-09-03] MEDS ORDERED: Iopamidol 370 76% 100 ML VIAL ONE (10:02)
== END 2024-09-03 13:22 | disposition home or self-care (01) | DRG 274 ==
LOC: SURG A 09-03 07:13
PROVIDERS: ADMIT Internal Medicine Cardiovascular Disease; ATTEND Internal Medicine Cardiovascular Disease
PROC: B24BZZ4 Ultrasonography of Heart with Aorta, Transesophageal (ICD-10-PCS; principal; 2024-09-03)
PROC: 02L73DK Occlusion of Left Atrial Appendage with Intraluminal Device, Percutaneous Approach (ICD-10-PCS; 2024-09-03)
PROC: 3E033XZ Introduction of Vasopressor into Peripheral Vein, Percutaneous Approach (ICD-10-PCS; 2024-09-03)
DX: I48.0 Paroxysmal atrial fibrillation (principal); Z00.6 Encounter for examination for normal comparison and control in clinical research program; Z79.01 Long term (current) use of anticoagulants; Z79.82 Long term (current) use of aspirin; Z79.899 Other long term (current) drug therapy
CPT/HCPCS: 33340; 80053; 85027; 85347; 85610; 85730; 86850; 86900; 86901; 93306; 93312; C1759; C1760; C1889; C1894; J1100; J1644; J2405; J2704; J2720; J3490

== ENCOUNTER 2024-09-03 06:04 | Day surgery (SDC) | payer MEDICARE, OTHER ==
[2024-09-03] MEDS ORDERED: Protamine Sulfate 50 MG/5 ML VIAL ONE (06:55)
[2024-09-03] MEDS ORDERED: CEFAZOLIN 2 GM VIAL ONE (06:55)
[2024-09-03] MEDS ORDERED: Heparin 10,000 UNITS/ 10 ML VIAL ONE (06:55)
[2024-09-03] MEDS ORDERED: Clindamycin/D5W 900 mg/50 ml Premix Bag ONE (07:00)
== END 2024-09-03 13:22 | disposition home or self-care (01) ==
LOC: SDC 06:04
PROVIDERS: ATTEND Family Medicine
DX: I48.0 Paroxysmal atrial fibrillation (principal)
CPT/HCPCS: C1759; C1760 ×2; C1889; C1894 ×2; J1644; J2720; J3490

== ENCOUNTER 2024-10-22 08:55 | Outpatient (CLI) | payer MEDICARE, OTHER ==
[2024-10-22 10:48] LABS: Hematocrit 40.5 % (36.0-47.0); Hemoglobin 12.8 g/dL (12.0-16.0); Mean Corpuscular HGB CONC 31.6 g/dL (32.0-36.0); Mean Corpuscular Hemoglobin 26.9 pg (27.0-31.0); Mean Corpuscular Volume 85.1 fL (78.0-98.0); Mean Platelet Volume 10.5 fL (7.4-10.4); Platelet Count 224 10x3/uL (130-400); RBC Distribution Width 14.8 % (11.5-14.5); Red Blood Cell (RBC) Count 4.76 mill/uL (4.20-5.40)
[2024-10-22 11:01] LABS: Prothrombin Time 13.3 sec (12.0-14.7)
[2024-10-22 11:02] LABS: PTT 28.8 sec (22.9-36.1)
[2024-10-22 11:08] LABS: Anion Gap 13 mmol/L (10-20); BUN (Urea Nitrogen) 22 mg/dL (9.8-20.1); Calc. Creatinine Clearance 0 mL/min (70-130); Carbon Dioxide 25 mmol/L (23-31); Chloride 106 mmol/L (98-107); Estimated GFR 73; Glucose 95 mg/dL (83-110); Sodium 140 mmol/L (136-145)
== END 2024-10-22 08:56 | disposition home or self-care (01) ==
LOC: LABBT 08:55
PROVIDERS: ATTEND Internal Medicine Cardiovascular Disease
DX: Z01.812 Encounter for preprocedural laboratory examination (principal); I48.0 Paroxysmal atrial fibrillation; I63.9 Cerebral infarction, unspecified
CPT/HCPCS: 80048; 85027; 85610; 85730

== ENCOUNTER 2024-11-06 11:24 | Outpatient (CLI) | payer MEDICARE, OTHER | END 2024-11-06 11:25 | disposition home or self-care (01) | LOC: SCSRAD 11:24 | DX: R06.00 Dyspnea, unspecified (principal); J90 Pleural effusion, not elsewhere classified; J98.11 Atelectasis; I51.7 Cardiomegaly | CPT/HCPCS: 71046 ==

== ENCOUNTER 2024-11-15 06:13 | Day surgery (SDC) | payer MEDICARE, OTHER ==
[2024-11-14 10:03] VITALS: BMI 35.4
[2024-11-15] MEDS ORDERED: PROPOFOL 200 MG/20 ML VIAL ONE (07:35)
[2024-11-15] MEDS ORDERED: Lidocaine 1% PF 5 ML VIAL ONE (07:35)
== END 2024-11-15 09:03 | disposition home or self-care (01) ==
LOC: SDC 06:13
PROVIDERS: ATTEND Internal Medicine Cardiovascular Disease
PROC: B246ZZ4 Ultrasonography of Right and Left Heart, Transesophageal (ICD-10-PCS; principal; 2024-11-15)
DX: I48.0 Paroxysmal atrial fibrillation (principal); R29.6 Repeated falls; I10 Essential (primary) hypertension; E78.5 Hyperlipidemia, unspecified; I48.91 Unspecified atrial fibrillation; I48.92 Unspecified atrial flutter; E66.01 Morbid (severe) obesity due to excess calories; Z95.818 Presence of other cardiac implants and grafts; Z87.891 Personal history of nicotine dependence
CPT/HCPCS: 93312; J2704

== ENCOUNTER 2025-07-27 13:00 | Emergency (ER) | payer MEDICARE, OTHER ==
[2025-07-27] MEDS ORDERED: HYDROcodone/Acetaminophen 5/325 mg Tablet ONE (14:36)
[2025-07-27] MEDS ORDERED: Lidocaine 1% PF 5 ML VIAL ONE (15:22)
[2025-07-27] MEDS ORDERED: Lidocaine 1% (PF) 30 ML VIAL ONE (15:23)
== END 2025-07-27 16:10 | disposition home or self-care (01) ==
LOC: ERS 13:00
DX: S52.502A Unspecified fracture of the lower end of left radius, initial encounter for closed fracture (principal); I10 Essential (primary) hypertension; I25.10 Atherosclerotic heart disease of native coronary artery without angina pectoris; Z87.891 Personal history of nicotine dependence; W19.XXXA Unspecified fall, initial encounter
CPT/HCPCS: 73110; J3010; 25605; 99283